=== PATIENT | male | born 1965 | race African-American/Black ===

== ENCOUNTER 2019-06-23 13:27 | Inpatient (IN) | payer OTHER ==
[2019-06-23 14:19] VITALS: BMI 20.6
--- NOTE | 2019-06-23 17:04 | HP ---
CIWA Score Nausea/Vomitin Muscle Tremors: 3 Anxiety: 2 Agitation: 3 Paroxysmal Sweats: 2 Orientation: 0-Oriented Tacttile Disturbances: 0-None Auditory Disturbances: 0-None Visual Disturbances: 0-None Headache: 0-None Present CIWA-Ar Total Score: 12 - Admission Criteria OASAS Guidelines: Admission for Medically Managed Detox: Requires at least one of the followin. CIWA greater than 12 2. Seizures within the past 24 hours 3. Delirium tremens within the past 24 hours 4. Hallucinations within the past 24 hours 5. Acute intervention needed for co occurring medical disorder 6. Acute intervention needed for co occurring psychiatric disorder 7. Severe withdrawal that cannot be handled at a lower level of care (continued vomiting, continued diarrhea, abnormal vital signs) requiring intravenous medication and/or fluids 8. Admission ROS [facility] Chief Complaint: Detox Alcohol and Heroin Allergies/Adverse Reactions: Allergies Allergy/AdvReac Type Severity Reaction Status Date / Time No Known Allergies Allergy Verified 06/23/19 14:00 History of Present Illness: 53 year old male with hypertension, alcohol and heroin dependence here for detox. Never been here before but was in detox 2x before, last time 1 year ago elsewhere. Reports not taking meds for 2 weeks. Reports dysfunctional family which is why he drinks. Alcohol: a fifth of vodka every day, last drink before he got here, started at age 5; Never had a seizure, withdrawals include tremors Heroin: 2-3 bags per week, sniffs it, last used last week; never injected, started in high school Cocaine: denies use Marijuana: couple sacks per day Cigarettes: 1.5 packs per day since age [age] Surgeries: never Work: Former demolition work Living Situation: lives in [place], stays with family Social: 2 girls, healthy - Ebola screening Have you traveled outside of the country in the last 21 days: No Have you had contact with anyone from an Ebola affected area: No Do you have a fever: No - Review of Systems Constitutional: Chills, Diaphoresis, Fever EENT: reports: Blurred Vision, Nose Congestion Respiratory: reports: Cough, Shortness of Breath Cardiac: reports: No Symptoms Reported GI: reports: Nausea : reports: No Symptoms Reported Musculoskeletal: reports: No Symptoms Reported Integumentary: reports: No Symptoms Reported Neuro: reports: No Symptoms reported Endocrine: reports: No Symptoms Reported Hematology: reports: No Symptoms Reported Psychiatric: reports: Judgement Intact, Mood/Affect Appropiate, Orientated x3 Patient History - Smoking Cessation Smoking history: Current every day smoker Have you smoked in the past 12 months: Yes Hx Chewing Tobacco Use: No Initiated information on smoking cessation: No 'Breaking Loose' booklet given: 06/23/19 - Substances abused Heroin Substance route: Inhalation Frequency: 1-2 times per week Amount used: 2- 3 bags Age of first use: 13 Date of last use: 06/16/19 Alcohol Substance route: Oral Frequency: Daily Amount used: 24 bottles of nips vodka Age of first use: 5 Date of last use: 06/23/19 Admission Physical Exam [facility] - Vital Signs Vital Signs: Vital Signs - 24 hr 06/23/19 06/23/19 14:00 16:47 Temperature 97.2 F L 97.2 F L Pulse Rate 71 71 Respiratory 18 18 Rate Blood Pressure 130/72 130/72 - Physical General Appearance: Yes: No Apparent Distress, Nourished, Disheveled HEENTM: Yes: EOMI, Hearing grossly Normal Respiratory: Yes: Chest Non-Tender, Lungs Clear, Normal Breath Sounds, No Respiratory Distress Breast: Yes: Within Normal Limits, Axillae without masses Cardiology: Yes: Regular Rhythm, Regular Rate Abdominal: Yes: Non Tender, Flat, Soft Musculoskeletal: Yes: Gait Steady Extremities: Yes: Normal Capillary Refill Neurological: Yes: account underwriter II-XII NML intact, Fully Oriented, Alert, Motor Strength 5/5 - Diagnostic (1) Alcohol dependence Current Visit: Yes Status: Acute Cleared for Admission [facility] - Detox or Rehab [facility] Level of Care: Medically Managed Breathalyzer - Breathalyzer Breathalyzer: 0.078 Urine Drug Screen - Test Device Lot number: [id number] Expiration date: 02/20/21 - Control Is test valid?: Yes - Results Drug screen NEGATIVE: No Urine drug screen results: THC-Marijuana, ROMERO-Cocaine Inpatient Rehab Admission - Rehab Decision to Admit Inpatient rehab admission?: No
--- NOTE | 2019-06-23 17:15 | PN ---
"Teaching Attending Note Name of Resident: Srinivas Alejo ATTENDING PHYSICIAN STATEMENT I saw and evaluated the patient. I reviewed the resident's note and discussed the case with the resident. I agree with the resident's findings and plan as documented. SUBJECTIVE: 53 year old male HERE FOR alcohol and heroin detox . etoh : 1/5 /day , first age of use 5, latest use today , denies seizures , + tremors . heroin : 2-3 bags heroin / week via inhalation, denies IV , latest use 1 week ago Marijuana: 2 /DAY Cigarettes: 1.5 packs per day since age [age] pmhx : hypertension, non- cmpliant w/ meds x 2 weeks. OBJECTIVE: [facility]NWD Search Terms: ruthy borges, 1965 Search Date: 06/23/2019 05:14:33 PM This report was requested by: Blanca Cazares | Reference #: [id number] There are no results for the search terms that you entered. Vital Signs - 24 hr 06/23/19 06/23/19 14:00 16:47 Temperature 97.2 F L 97.2 F L Pulse Rate 71 71 Respiratory 18 18 Rate Blood Pressure 130/72 130/72 ASSESSMENT AND PLAN: Alcohol use disorder- Librium detox. Opioid use , episodic Cannabis use disorder Nicotine dependence - smoking cessation counseling,"
[2019-06-23] MEDS ORDERED: ACETAMINOPHEN 325 MG TABLET (FP) PO PRN ×2 (17:17)
[2019-06-23] MEDS ORDERED: hydrOXYzine PAMOATE 25 MG CAPSULE (FP) PO PRN (17:17)
[2019-06-23] MEDS ORDERED: MAGNESIUM CITRATE 300 ML BOTTLE PO PRN (17:17)
[2019-06-23] MEDS ORDERED: IBUPROFEN 400 MG TABLET (FP) PO PRN (17:17)
[2019-06-23] MEDS ORDERED: MAGNESIUM HYDROX 2400MG/30ML ORAL SUSPENSION 30 ML CUP PO PRN (17:17)
[2019-06-23] MEDS ORDERED: chlordiazePOXIDE HCL 10 MG CAPSULE PO PRN (17:17)
[2019-06-23] MEDS ORDERED: MAG HYDROX/AL HYDROX/SIMETH 30 ML UNIT-DOSE CUP PO PRN (17:17)
[2019-06-23] MEDS ORDERED: MENTHOL/PHENOL 1 EACH UD MM PRN (17:17)
[2019-06-23] MEDS ORDERED: BISMUTH SUBSALICYLATE 524 MG/30 ML UD PO PRN (17:17)
[2019-06-23] MEDS ORDERED: METHOCARBAMOL 500 MG TABLET PO PRN (17:17)
[2019-06-23] MEDS: MELATONIN 5 MG TABLETS PO PRN (21:31)
[2019-06-23] MEDS: chlordiazePOXIDE HCL 25 MG CAPSULE PO SCH (21:31)
[2019-06-23] MEDS: THIAMINE HCL 100 MG TABLET (FP) PO SCH (21:31)
[2019-06-24] MEDS: chlordiazePOXIDE HCL 25 MG CAPSULE PO SCH ×3 (05:39→22:15)
[2019-06-24 09:47] LABS: HEMATOCRIT 35.3 % (35.4-49); HEMOGLOBIN 12.2 GM/dL (11.7-16.9); MCH 30.4 pg (25.7-33.7); MCHC 34.5 g/dl (32.0-35.9); MEAN CELL VOLUME 88.1 fl (80-96); MEAN PLT VOLUME 8.4 fl (7.5-11.1); PLATELET COUNT 209 K/MM3 (134-434); RDW 15.1 % (11.9-15.9); WHITE BLOOD COUNT 3.1 K/mm3 (4.0-10.0)
[2019-06-24] MEDS: PRENATAL VITAMINS W/ FOLIC ACID TABLET (FP) PO SCH (10:05)
[2019-06-24] MEDS: NICOTINE 21 MG/24 HOURS TOPICAL PATCH TD SCH (10:06)
[2019-06-24 10:29] LABS: ALBUMIN 3.4 g/dl (3.4-5.0); BILIRUBIN,TOTAL 1.4 mg/dL (0.2-1); BLOOD UREA NITROGEN 10.5 mg/dL (7-18); CREATININE 0.8 mg/dL (0.55-1.3); POTASSIUM 3.8 mmol/L (3.5-5.1); TOT PROT 6.3 g/dl (6.4-8.2)
--- NOTE | 2019-06-24 10:51 | PN ---
[facility] CIWA - CIWA Score Nausea/Vomitin-No Nausea/No Vomiting Muscle Tremors: 2 Anxiety: 2 Agitation: 3 Paroxysmal Sweats: 2 Orientation: 0-Oriented Tacttile Disturbances: 1-Very Mild Itch/Numbness Auditory Disturbances: 0-None Visual Disturbances: 1-Very Mild Sensitivity Headache: 1-Very Mild CIWA-Ar Total Score: 12 S Progress Note (SOAP) Subjective: c/o interrupted sleep, chills, sweats, body aches Objective: 06/24/19 10:50 Vital Signs Temperature 98.5 F 06/24/19 09:05 Pulse Rate 59 L 06/24/19 09:05 Respiratory Rate 18 06/24/19 09:05 Blood Pressure 147/94 06/24/19 09:05 O2 Sat by Pulse Oximetry (%) Laboratory Last Values WBC 3.1 K/mm3 (4.0-10.0) L 06/24/19 07:40 RBC 4.00 M/mm3 (4.00-5.60) 06/24/19 07:40 Hgb 12.2 GM/dL (11.7-16.9) 06/24/19 07:40 Hct 35.3 % (35.4-49) L 06/24/19 07:40 MCV 88.1 fl (80-96) 06/24/19 07:40 MCH 30.4 pg (25.7-33.7) 06/24/19 07:40 MCHC 34.5 g/dl (32.0-35.9) 06/24/19 07:40 RDW 15.1 % (11.9-15.9) 06/24/19 07:40 Plt Count 209 K/MM3 (134-434) 06/24/19 07:40 MPV 8.4 fl (7.5-11.1) 06/24/19 07:40 Sodium 141 mmol/L (136-145) 06/24/19 07:40 Potassium 3.8 mmol/L (3.5-5.1) 06/24/19 07:40 Chloride 107 mmol/L (98-107) 06/24/19 07:40 Carbon Dioxide 27 mmol/L (21-32) 06/24/19 07:40 Anion Gap 7 MMOL/L (8-16) L 06/24/19 07:40 BUN 10.5 mg/dL (7-18) 06/24/19 07:40 Creatinine 0.8 mg/dL (0.55-1.3) 06/24/19 07:40 Est GFR (CKD-EPI)AfAm 116.56 06/24/19 07:40 Est GFR (CKD-EPI)NonAf 100.57 06/24/19 07:40 Random Glucose 79 mg/dL (74-106) 06/24/19 07:40 Calcium 9.0 mg/dL (8.5-10.1) 06/24/19 07:40 Total Bilirubin 1.4 mg/dL (0.2-1) H 06/24/19 07:40 AST 24 U/L (15-37) 06/24/19 07:40 ALT 20 U/L (13-61) 06/24/19 07:40 Alkaline Phosphatase 121 U/L (45-117) H 06/24/19 07:40 Total Protein 6.3 g/dl (6.4-8.2) L 06/24/19 07:40 Albumin 3.4 g/dl (3.4-5.0) 06/24/19 07:40 Assessment: 06/24/19 10:50 Aox3 irritable No adventitious breath sounds full ROM no gait disturbance withdrawal sx Plan: increase PO fluids continue detox Continue to monitor
--- NOTE | 2019-06-24 14:06 | CONSULT ---
[facility] Psychiatric Consult - Data Date of interview: 06/24/19 Admission source: [facility] Identifying data: THREE visits at bedside made by this sba underwriter to engage with the patient for a psychiatric interview. Mr Pacheco is found lying in bed, awake and resting comfortably. " I don't have to talk to psychiatrists." Patient dismisses clinical sales consultant. Declines evaluation. Nursing staff is made aware.
[2019-06-24] MEDS: MELATONIN 5 MG TABLETS PO PRN (22:15)
[2019-06-24] MEDS: THIAMINE HCL 100 MG TABLET (FP) PO SCH (22:15)
[2019-06-25] MEDS: chlordiazePOXIDE 5 MG CAPSULE PO SCH ×3 (06:01→22:32)
--- NOTE | 2019-06-25 10:22 | PN ---
S CIWA - CIWA Score Nausea/Vomitin-No Nausea/No Vomiting Muscle Tremors: None Anxiety: 3 Agitation: 0-Normal Activity Paroxysmal Sweats: 3 Orientation: 0-Oriented Tacttile Disturbances: 0-None Auditory Disturbances: 0-None Visual Disturbances: 0-None Headache: 2-Mild CIWA-Ar Total Score: 8 [facility] Progress Note (SOAP) Subjective: c/o sweats, anxiety, and headache. Objective: 06/25/19 10:20 Vital Signs 06/25/19 06/25/19 06/25/19 03:30 06:04 09:07 Temperature 97.9 F 97.8 F Pulse Rate 53 L 61 Respiratory 18 18 18 Rate Blood Pressure 152/84 147/91 Lab Results WBC 3.1 K/mm3 (4.0-10.0) L 06/24/19 07:40 RBC 4.00 M/mm3 (4.00-5.60) 06/24/19 07:40 Hgb 12.2 GM/dL (11.7-16.9) 06/24/19 07:40 Hct 35.3 % (35.4-49) L 06/24/19 07:40 MCV 88.1 fl (80-96) 06/24/19 07:40 MCHC 34.5 g/dl (32.0-35.9) 06/24/19 07:40 RDW 15.1 % (11.9-15.9) 06/24/19 07:40 Plt Count 209 K/MM3 (134-434) 06/24/19 07:40 Sodium 141 mmol/L (136-145) 06/24/19 07:40 Potassium 3.8 mmol/L (3.5-5.1) 06/24/19 07:40 Chloride 107 mmol/L (98-107) 06/24/19 07:40 Carbon Dioxide 27 mmol/L (21-32) 06/24/19 07:40 Anion Gap 7 MMOL/L (8-16) L 06/24/19 07:40 BUN 10.5 mg/dL (7-18) 06/24/19 07:40 Creatinine 0.8 mg/dL (0.55-1.3) 06/24/19 07:40 Random Glucose 79 mg/dL (74-106) 06/24/19 07:40 Calcium 9.0 mg/dL (8.5-10.1) 06/24/19 07:40 Labs noted. Assessment: 06/25/19 10:21 AOX3, in no acute respiratory distress. Full ROM, ambulating in the unit. Withdrawal symptoms. Plan: continue detox.
[2019-06-25] MEDS: PRENATAL VITAMINS W/ FOLIC ACID TABLET (FP) PO SCH (11:00)
[2019-06-25] MEDS: NICOTINE 21 MG/24 HOURS TOPICAL PATCH TD SCH (11:00)
[2019-06-25] MEDS: MELATONIN 5 MG TABLETS PO PRN (22:32)
[2019-06-25] MEDS: THIAMINE HCL 100 MG TABLET (FP) PO SCH (22:32)
[2019-06-26] MEDS ORDERED: chlordiazePOXIDE HCL 10 MG CAPSULE PO PRN
[2019-06-26] MEDS: chlordiazePOXIDE HCL 10 MG CAPSULE PO SCH ×3 (06:20→22:17)
[2019-06-26] MEDS: PRENATAL VITAMINS W/ FOLIC ACID TABLET (FP) PO SCH (10:51)
[2019-06-26] MEDS: NICOTINE 21 MG/24 HOURS TOPICAL PATCH TD SCH (10:51)
--- NOTE | 2019-06-26 13:47 | PN ---
S CIWA - CIWA Score Nausea/Vomitin-No Nausea/No Vomiting Muscle Tremors: 2 Anxiety: 1-Mildly Anxious Agitation: 1-Slight > Activity Paroxysmal Sweats: No Perspiration Orientation: 0-Oriented Tacttile Disturbances: 0-None Auditory Disturbances: 0-None Visual Disturbances: 0-None Headache: 0-None Present CIWA-Ar Total Score: 4 BHS Progress Note (SOAP) Subjective: 53 years old male admitted on 06/23/19 for alcohol withdrawal sx management treated with librium detox regimen sitting on the edge of the bed eating breakfast discuss aftercare with staff Objective: 06/26/19 13:47 Vital Signs Temperature 98.7 F 06/26/19 09:22 Pulse Rate 59 L 06/26/19 09:22 Respiratory Rate 18 06/26/19 09:22 Blood Pressure 117/69 06/26/19 09:22 O2 Sat by Pulse Oximetry (%) Laboratory Last Values WBC 3.1 K/mm3 (4.0-10.0) L 06/24/19 07:40 RBC 4.00 M/mm3 (4.00-5.60) 06/24/19 07:40 Hgb 12.2 GM/dL (11.7-16.9) 06/24/19 07:40 Hct 35.3 % (35.4-49) L 06/24/19 07:40 MCV 88.1 fl (80-96) 06/24/19 07:40 MCH 30.4 pg (25.7-33.7) 06/24/19 07:40 MCHC 34.5 g/dl (32.0-35.9) 06/24/19 07:40 RDW 15.1 % (11.9-15.9) 06/24/19 07:40 Plt Count 209 K/MM3 (134-434) 06/24/19 07:40 MPV 8.4 fl (7.5-11.1) 06/24/19 07:40 Sodium 141 mmol/L (136-145) 06/24/19 07:40 Potassium 3.8 mmol/L (3.5-5.1) 06/24/19 07:40 Chloride 107 mmol/L (98-107) 06/24/19 07:40 Carbon Dioxide 27 mmol/L (21-32) 06/24/19 07:40 Anion Gap 7 MMOL/L (8-16) L 06/24/19 07:40 BUN 10.5 mg/dL (7-18) 06/24/19 07:40 Creatinine 0.8 mg/dL (0.55-1.3) 06/24/19 07:40 Est GFR (CKD-EPI)AfAm 116.56 06/24/19 07:40 Est GFR (CKD-EPI)NonAf 100.57 06/24/19 07:40 Random Glucose 79 mg/dL (74-106) 06/24/19 07:40 Calcium 9.0 mg/dL (8.5-10.1) 06/24/19 07:40 Total Bilirubin 1.4 mg/dL (0.2-1) H 06/24/19 07:40 AST 24 U/L (15-37) 06/24/19 07:40 ALT 20 U/L (13-61) 06/24/19 07:40 Alkaline Phosphatase 121 U/L (45-117) H 06/24/19 07:40 Total Protein 6.3 g/dl (6.4-8.2) L 06/24/19 07:40 Albumin 3.4 g/dl (3.4-5.0) 06/24/19 07:40 RPR Titer Nonreactive (NONREACTIVE) 06/24/19 07:40 HIV 1&2 Ag/Ab, 4th Gen Non reactive (Non Reactive) 06/24/19 07:40 lab noted Assessment: 06/26/19 13:47 alcohol withdrawal sx Plan: continue librium detox regimen
[2019-06-26] MEDS: THIAMINE HCL 100 MG TABLET (FP) PO SCH (22:17)
[2019-06-26] MEDS: MELATONIN 5 MG TABLETS PO PRN (22:17)
[2019-06-27] MEDS ORDERED: chlordiazePOXIDE HCL 10 MG CAPSULE PO ONE (05:00)
[2019-06-27 09:22] VITALS: BP 107/68; PULSE 64; TEMP 97.7
--- NOTE | 2019-06-27 10:28 | DS ---
[facility] Detox Discharge Summary Admission Date: 06/23/19 Discharge Date: 06/27/19 - History Present History: Alcohol Dependence Additional Comments: 53 years old male admitted on 06/23/19 for alcohol withdrawal sx management treated with librium detox regimen patient tolerated well patient is alert oriented x 3 respiratory clear lung bilaterally on auscultation abdomen soft no rebound tenderness skin warm and dry - Physical Exam Results Vital Signs: Vital Signs Temperature 97.7 F 06/27/19 09:21 Pulse Rate 64 06/27/19 09:21 Respiratory Rate 18 06/27/19 09:21 Blood Pressure 107/68 06/27/19 09:21 O2 Sat by Pulse Oximetry (%) Pertinent Admission Physical Exam Findings: alcohol withdrawal sx Laboratory Last Values WBC 3.1 K/mm3 (4.0-10.0) L 06/24/19 07:40 RBC 4.00 M/mm3 (4.00-5.60) 06/24/19 07:40 Hgb 12.2 GM/dL (11.7-16.9) 06/24/19 07:40 Hct 35.3 % (35.4-49) L 06/24/19 07:40 MCV 88.1 fl (80-96) 06/24/19 07:40 MCH 30.4 pg (25.7-33.7) 06/24/19 07:40 MCHC 34.5 g/dl (32.0-35.9) 06/24/19 07:40 RDW 15.1 % (11.9-15.9) 06/24/19 07:40 Plt Count 209 K/MM3 (134-434) 06/24/19 07:40 MPV 8.4 fl (7.5-11.1) 06/24/19 07:40 Sodium 141 mmol/L (136-145) 06/24/19 07:40 Potassium 3.8 mmol/L (3.5-5.1) 06/24/19 07:40 Chloride 107 mmol/L (98-107) 06/24/19 07:40 Carbon Dioxide 27 mmol/L (21-32) 06/24/19 07:40 Anion Gap 7 MMOL/L (8-16) L 06/24/19 07:40 BUN 10.5 mg/dL (7-18) 06/24/19 07:40 Creatinine 0.8 mg/dL (0.55-1.3) 06/24/19 07:40 Est GFR (CKD-EPI)AfAm 116.56 06/24/19 07:40 Est GFR (CKD-EPI)NonAf 100.57 06/24/19 07:40 Random Glucose 79 mg/dL (74-106) 06/24/19 07:40 Calcium 9.0 mg/dL (8.5-10.1) 06/24/19 07:40 Total Bilirubin 1.4 mg/dL (0.2-1) H 06/24/19 07:40 AST 24 U/L (15-37) 06/24/19 07:40 ALT 20 U/L (13-61) 06/24/19 07:40 Alkaline Phosphatase 121 U/L (45-117) H 06/24/19 07:40 Total Protein 6.3 g/dl (6.4-8.2) L 06/24/19 07:40 Albumin 3.4 g/dl (3.4-5.0) 06/24/19 07:40 RPR Titer Nonreactive (NONREACTIVE) 06/24/19 07:40 HIV 1&2 Ag/Ab, 4th Gen Non reactive (Non Reactive) 06/24/19 07:40 lab noted - Treatment Hospital Course: Detox Protocol Followed, Detoxed Safely, Responded well, Discharged Condition Good, Rehab Referral Accepted Patient has Accepted [facility] Referral [facility] - Medication Discharge Medications: Ambulatory Orders Clonidine HCl [Clonidine HCl ER] 0.1 mg PO TID 06/23/19 Docusate Sodium [Colace -] 100 mg PO BID 06/23/19 Famotidine [Pepcid] 20 mg PO DAILY 06/23/19 Ferrous Sulfate [Feosol] 325 mg PO DAILY 06/23/19 Gabapentin [Neurontin -] 300 mg PO Q8H 06/23/19 Ibuprofen 800 mg PO PRN PRN 06/23/19 Mirtazapine [Remeron -] 15 mg PO HS 06/23/19 Naltrexone HCl 25 mg PO DAILY 06/23/19 Quetiapine Fumarate [Seroquel -] 50 mg PO HS 06/23/19 - Diagnosis (1) Nicotine dependence Current Visit: Yes Status: Acute Qualifiers: Nicotine product type: cigarettes Substance use status: in withdrawal Qualified Code(s): F17.213 - Nicotine dependence, cigarettes, with withdrawal (2) Substance induced mood disorder Current Visit: Yes Status: Suspected (3) Alcohol dependence Current Visit: Yes Status: Acute Qualifiers: Substance use status: uncomplicated Qualified Code(s): F10.20 - Alcohol dependence, uncomplicated - AMA Did Patient Leave Against Medical Advice: No CIWA Score - CIWA Score Nausea/Vomitin-No Nausea/No Vomiting Muscle Tremors: 1-None Visible, but [place] Anxiety: 0-No Anxiety, at Ease Agitation: 0-Normal Activity Paroxysmal Sweats: No Perspiration Orientation: 0-Oriented Tacttile Disturbances: 0-None Auditory Disturbances: 0-None Visual Disturbances: 0-None Headache: 0-None Present CIWA-Ar Total Score: 1
[2019-06-27] MEDS: PRENATAL VITAMINS W/ FOLIC ACID TABLET (FP) PO SCH (10:32)
[2019-06-27] MEDS: NICOTINE 21 MG/24 HOURS TOPICAL PATCH TD SCH (10:32)
== END 2019-06-27 12:20 | disposition other institution (70) | DRG 775 ==
LOC: YASAS 13:27 → Y3N 18:04
PROVIDERS: ADMIT Allergy & Immunology; ATTEND Allergy & Immunology
PROC: HZ2ZZZZ Detoxification Services for Substance Abuse Treatment (ICD-10-PCS; principal; 2019-06-23)
DX: F10.230 Alcohol dependence with withdrawal, uncomplicated (principal); F17.213 Nicotine dependence, cigarettes, with withdrawal; F19.24 Other psychoactive substance dependence with psychoactive substance-induced mood disorder
CPT/HCPCS: 36415; 80053; 85027; 86593; 87389

== ENCOUNTER 2019-06-27 12:20 | Inpatient (IN) | payer OTHER ==
[2019-06-27] MEDS ORDERED: MAG HYDROX/AL HYDROX/SIMETH 30 ML UNIT-DOSE CUP PO PRN (14:49)
[2019-06-27] MEDS ORDERED: MAGNESIUM HYDROX 2400MG/30ML ORAL SUSPENSION 30 ML CUP PO PRN (14:49)
[2019-06-27] MEDS ORDERED: LOPERAMIDE HCL 2 MG CAPSULE PO PRN (14:49)
[2019-06-27] MEDS ORDERED: MENTHOL/PHENOL 1 EACH UD MM PRN (14:49)
[2019-06-27] MEDS ORDERED: P-EPHED 60MG/TRIPROLIDI 2.5MG TABLET PO PRN (14:49)
[2019-06-27] MEDS ORDERED: IBUPROFEN 400 MG TABLET (FP) PO PRN (14:49)
[2019-06-27] MEDS ORDERED: ACETAMINOPHEN 325 MG TABLET (FP) PO PRN (14:49)
[2019-06-27] MEDS ORDERED: MAGNESIUM CITRATE 300 ML BOTTLE PO PRN (14:49)
[2019-06-27] MEDS ORDERED: NICOTINE POLACRILEX 4 MG GUM BUC PRN (14:49)
[2019-06-27] MEDS ORDERED: guaiFENesin 200 MG/10 ML 10 ML UNIT-DOSE CUPS PO PRN (14:49)
--- NOTE | 2019-06-27 14:49 | HP ---
[facility] Rehab Assess/Revision - Admission History Admitted to Rehab from: [facility] Date of Admission to Rehab: 06/27/19 - Vital signs Vital Signs: Vital Signs Period Temp Pulse Resp BP Sys/Harry Pulse Ox Last 24 Hr 98.1 F 70 18 123/81 - Findings Detox History & Physical reviewed: Yes Concur with findings: Yes Comments/Additional Findings: transferred from detox to rehab admission as per protocol Inpatient Rehab Admission - Rehab Decision to Admit Inpatient rehab admission?: Yes - Initial Determination Are CD services needed?: Yes Free of communicable disease: Yes Not in need of hospitalization: Yes - Rehab Admission Criteria Previous failed treatment: Yes Poor recovery environment: Yes Comorbidities: Yes Lacks judgement: Yes Patient is meeting Inpatient Rehab admission criteria:: Yes
[2019-06-27] MEDS: MELATONIN 5 MG TABLETS PO PRN (21:58)
[2019-06-27] MEDS: THIAMINE HCL 100 MG TABLET (FP) PO SCH (21:58)
[2019-06-28] MEDS: NICOTINE 21 MG/24 HOURS TOPICAL PATCH TD SCH (11:47)
[2019-06-28] MEDS: PRENATAL VITAMINS W/ FOLIC ACID TABLET (FP) PO SCH (11:47)
[2019-06-28] MEDS: MELATONIN 5 MG TABLETS PO PRN (21:16)
[2019-06-28] MEDS: THIAMINE HCL 100 MG TABLET (FP) PO SCH (21:16)
[2019-06-29] MEDS: PRENATAL VITAMINS W/ FOLIC ACID TABLET (FP) PO SCH (10:22)
[2019-06-29] MEDS: NICOTINE 21 MG/24 HOURS TOPICAL PATCH TD SCH (10:22)
--- NOTE | 2019-06-29 17:38 | CONSULT ---
[facility] Psychiatric Consult - Data Date of interview: 06/29/19 Admission source: Transfer from [address] [place] [address]. Identifying data: First admission to [address] for this 53 y/o AA male who sought rehabilitative care after completion of detoxification at [address] [place] [address]. Patient is , a father of two, domiciled, unemployed and supported on welfare. Substance Abuse History: Discussed with the patient. Details in current [facility] report as follows : Smoking Cessation. Smoking history: Current every day smoker. Have you smoked in the past 12 months: Yes. Hx Chewing Tobacco Use: No. Initiated information on smoking cessation: No. 'Breaking Loose' booklet given: 06/23/19. - Substances abused. Heroin. Substance route: Inhalation. Frequency: 1-2 times per week. Amount used: 2- 3 bags. Age of first use: 13. Date of last use: 06/16/19. Alcohol. Substance route: Oral. Frequency: Daily. Amount used: 24 bottles of nips vodka. Age of first use: 5. Date of last use: 06/23/19 Medical History: Medical profile is remarkable for chronic lumbar pain and hypertension. Psychiatric History: Patient admits to a history of two psychiatric hospitalizations at [facility]. He endorses multiple diagnoses : MDD, schizophrenia, anxiety disorder. Mr Pacheco states that he has been prescribed various medications over the years (names not recalled) and he admits to chronic non-adherence to medications + OPD care. Patient denies history of suicide attempts. Physical/Sexual Abuse/Trauma History: Patient denies history of abuse. Additional Comment: Urine drug screen results: THC-Marijuana, ROMERO-Cocaine. Noted. Mental Status Exam - Mental Status Exam Alert and Oriented to: Time, Place, Person Cognitive Function: Good Patient Appearance: Disheveled Mood: Nervous, Withdrawn Affect: Mood Congruent, Constricted Patient Behavior: Appropriate, Cooperative Speech Pattern: Clear, Appropriate Voice Loudness: Normal Thought Process: Intact, Goal Oriented Thought Disorder: Not Present Hallucinations: Denies Suicidal Ideation: Denies Homicidal Ideation: Denies Insight/Judgement: Fair Sleep: Poorly, Difficulty falling asleep Appetite: Good Muscle strength/Tone: Normal Gait/Station: Normal Psychiatric Findings - Problem List ([place] 1, 2,3) (1) Alcohol dependence Current Visit: Yes Status: Chronic Qualifiers: Substance use status: uncomplicated Qualified Code(s): F10.20 - Alcohol dependence, uncomplicated (2) Opioid use disorder Current Visit: Yes Status: Chronic (3) Cannabis use disorder, mild, abuse Current Visit: Yes Status: Chronic (4) Nicotine dependence Current Visit: Yes Status: Acute Qualifiers: Nicotine product type: cigarettes Substance use status: in withdrawal Qualified Code(s): F17.213 - Nicotine dependence, cigarettes, with withdrawal (5) Substance induced mood disorder Current Visit: Yes Status: Suspected (6) Mood disorder Current Visit: Yes Status: Chronic (7) History of schizophrenia Current Visit: Yes Status: Chronic (8) Non-compliance Current Visit: Yes Status: Chronic - Initial Treatment Plan Initial Treatment Plan: Psychoeducation. Sleep hygiene. Motivational counseling. AA/NA meetings. MAT services discussed in this session (patient still ambivalent). Will initiate treatment with seroquel 100 mg po hs. Side effects/benefits discussed with the patient. Mr Pacheco has expressed his agreement with this plan of care. Gave verbal consent to MD. Buck.
[2019-06-29] MEDS: QUEtiapine FUMARATE 100 MG TABLET (FP) PO SCH (21:28)
[2019-06-29] MEDS: MELATONIN 5 MG TABLETS PO PRN (21:28)
[2019-06-29] MEDS: THIAMINE HCL 100 MG TABLET (FP) PO SCH (21:28)
[2019-06-30] MEDS: NICOTINE 21 MG/24 HOURS TOPICAL PATCH TD SCH (11:39)
[2019-06-30] MEDS: PRENATAL VITAMINS W/ FOLIC ACID TABLET (FP) PO SCH (11:39)
--- NOTE | 2019-06-30 15:12 | PN ---
[facility] Progress Note Note: Patient evaluated for request to initiate suboxone therapy for opioid use disorder. Patient utox upon admission + for THC and ROMERO and admitted to our detox facility for alcohol Patient reports no symptoms at this time Vital Signs Temperature 97.8 F 06/30/19 07:01 Pulse Rate 66 06/30/19 07:01 Respiratory Rate 18 06/30/19 07:01 Blood Pressure 100/62 06/30/19 07:01 O2 Sat by Pulse Oximetry (%) Aox3 no acute distress no outward s/s of withdrawal note call cooperative full ROM, no gait disturbance no pedal edema or erythema Patient plans [facility] d/t current homeless status, negative utox for opioids, but hx of alcohol dependence, patient will benefit from MAT with Vivitrol. Benefits and risks reviewed. Patient reports he is not interested in Vivitrol at this time.
[2019-06-30] MEDS: MELATONIN 5 MG TABLETS PO PRN (21:15)
[2019-06-30] MEDS: THIAMINE HCL 100 MG TABLET (FP) PO SCH (21:15)
[2019-06-30] MEDS: QUEtiapine FUMARATE 100 MG TABLET (FP) PO SCH (21:15)
[2019-07-01] MEDS: PRENATAL VITAMINS W/ FOLIC ACID TABLET (FP) PO SCH (10:51)
[2019-07-01] MEDS: NICOTINE 21 MG/24 HOURS TOPICAL PATCH TD SCH (10:51)
[2019-07-01] MEDS: THIAMINE HCL 100 MG TABLET (FP) PO SCH (21:33)
[2019-07-01] MEDS: QUEtiapine FUMARATE 100 MG TABLET (FP) PO SCH (21:33)
[2019-07-01] MEDS: MELATONIN 5 MG TABLETS PO PRN (21:33)
[2019-07-02] MEDS: PRENATAL VITAMINS W/ FOLIC ACID TABLET (FP) PO SCH (11:01)
[2019-07-02] MEDS: NICOTINE 21 MG/24 HOURS TOPICAL PATCH TD SCH (11:01)
[2019-07-02] MEDS: THIAMINE HCL 100 MG TABLET (FP) PO SCH (22:35)
[2019-07-02] MEDS: QUEtiapine FUMARATE 100 MG TABLET (FP) PO SCH (22:35)
[2019-07-03] MEDS: NICOTINE 21 MG/24 HOURS TOPICAL PATCH TD SCH (09:56)
[2019-07-03] MEDS: PRENATAL VITAMINS W/ FOLIC ACID TABLET (FP) PO SCH (09:56)
[2019-07-03] MEDS: QUEtiapine FUMARATE 100 MG TABLET (FP) PO SCH (21:52)
[2019-07-03] MEDS: THIAMINE HCL 100 MG TABLET (FP) PO SCH (21:52)
[2019-07-04] MEDS: PRENATAL VITAMINS W/ FOLIC ACID TABLET (FP) PO SCH (10:34)
[2019-07-04] MEDS: NICOTINE 21 MG/24 HOURS TOPICAL PATCH TD SCH (10:34)
[2019-07-04] MEDS: QUEtiapine FUMARATE 100 MG TABLET (FP) PO SCH (21:09)
[2019-07-04] MEDS: THIAMINE HCL 100 MG TABLET (FP) PO SCH (21:09)
[2019-07-04] MEDS: MELATONIN 5 MG TABLETS PO PRN (21:09)
[2019-07-05] MEDS: PRENATAL VITAMINS W/ FOLIC ACID TABLET (FP) PO SCH (10:09)
[2019-07-05] MEDS: NICOTINE 21 MG/24 HOURS TOPICAL PATCH TD SCH (10:09)
[2019-07-05] MEDS: QUEtiapine FUMARATE 100 MG TABLET (FP) PO SCH (21:55)
[2019-07-05] MEDS: THIAMINE HCL 100 MG TABLET (FP) PO SCH (21:55)
[2019-07-05] MEDS: MELATONIN 5 MG TABLETS PO PRN (21:55)
[2019-07-06] MEDS: PRENATAL VITAMINS W/ FOLIC ACID TABLET (FP) PO SCH (10:57)
[2019-07-06] MEDS: NICOTINE 21 MG/24 HOURS TOPICAL PATCH TD SCH (10:57)
[2019-07-06] MEDS: MELATONIN 5 MG TABLETS PO PRN (21:27)
[2019-07-06] MEDS: QUEtiapine FUMARATE 100 MG TABLET (FP) PO SCH (21:27)
[2019-07-06] MEDS: THIAMINE HCL 100 MG TABLET (FP) PO SCH (21:27)
[2019-07-07] MEDS: NICOTINE 21 MG/24 HOURS TOPICAL PATCH TD SCH (10:46)
[2019-07-07] MEDS: PRENATAL VITAMINS W/ FOLIC ACID TABLET (FP) PO SCH (10:46)
[2019-07-07] MEDS: THIAMINE HCL 100 MG TABLET (FP) PO SCH (22:00)
[2019-07-07] MEDS: QUEtiapine FUMARATE 100 MG TABLET (FP) PO SCH (22:00)
[2019-07-07] MEDS: MELATONIN 5 MG TABLETS PO PRN (22:00)
[2019-07-08] MEDS: NICOTINE 21 MG/24 HOURS TOPICAL PATCH TD SCH (10:33)
[2019-07-08] MEDS: PRENATAL VITAMINS W/ FOLIC ACID TABLET (FP) PO SCH (10:33)
[2019-07-08] MEDS: QUEtiapine FUMARATE 100 MG TABLET (FP) PO SCH (21:17)
[2019-07-08] MEDS: THIAMINE HCL 100 MG TABLET (FP) PO SCH (21:17)
[2019-07-08] MEDS: MELATONIN 5 MG TABLETS PO PRN (21:17)
[2019-07-09] MEDS: PRENATAL VITAMINS W/ FOLIC ACID TABLET (FP) PO SCH (10:09)
[2019-07-09] MEDS: NICOTINE 21 MG/24 HOURS TOPICAL PATCH TD SCH (10:09)
[2019-07-09] MEDS: MELATONIN 5 MG TABLETS PO PRN (21:51)
[2019-07-09] MEDS: THIAMINE HCL 100 MG TABLET (FP) PO SCH (21:51)
[2019-07-09] MEDS: QUEtiapine FUMARATE 100 MG TABLET (FP) PO SCH (21:51)
--- NOTE | 2019-07-10 08:21 | PN ---
[facility] Progress Note Note: Patient is scheduled for discharge tomorrow. Script for 30 days supply of Seroquel 100 mg/hs will be electronically transmitted to [facility] at [address] [address]
[2019-07-10] MEDS: NICOTINE 21 MG/24 HOURS TOPICAL PATCH TD SCH (10:10)
[2019-07-10] MEDS: PRENATAL VITAMINS W/ FOLIC ACID TABLET (FP) PO SCH (10:10)
[2019-07-10] MEDS: QUEtiapine FUMARATE 100 MG TABLET (FP) PO SCH (21:37)
[2019-07-10] MEDS: THIAMINE HCL 100 MG TABLET (FP) PO SCH (21:37)
[2019-07-10] MEDS: MELATONIN 5 MG TABLETS PO PRN (21:37)
[2019-07-11 06:49] VITALS: BP 144/72; PULSE 66; TEMP 98
--- NOTE | 2019-07-11 09:08 | DS ---
[facility] Rehab Discharge Summary - [facility] Rehab Discharge Summary Admission Date: 06/27/19 Discharge Date: 07/11/19 - History Present History: Alcohol dependence - Discharge Physical Exam Vital Signs: Vital Signs Temperature 98 F 07/11/19 06:48 Pulse Rate 66 07/11/19 06:48 Respiratory Rate 18 07/11/19 06:48 Blood Pressure 144/72 07/11/19 06:48 O2 Sat by Pulse Oximetry (%) Pertinent Admission Physical Exam Findings: Patient completed rehab today for alcohol dependence. ROS: denies chest pain, sob, alcohol cravings, and dizziness. PE: alert and oriented x 3 skin warm and dry neck supple, no jvd ext full rom, no visible tremors/edema Home Medications Medication Instructions Recorded Clonidine HCl [Clonidine HCl ER] 0.1 mg PO TID 06/23/19 Docusate Sodium [Colace -] 100 mg PO BID 06/23/19 Famotidine [Pepcid] 20 mg PO DAILY 06/23/19 Ferrous Sulfate [Feosol] 325 mg PO DAILY 06/23/19 Gabapentin [Neurontin -] 300 mg PO Q8H 06/23/19 Ibuprofen 800 mg PO PRN PRN 06/23/19 Mirtazapine [Remeron -] 15 mg PO HS 06/23/19 Naltrexone HCl 25 mg PO DAILY 06/23/19 Quetiapine Fumarate [Seroquel -] 50 mg PO HS 06/23/19 Quetiapine Fumarate [Seroquel -] 100 mg PO HS #30 tablet 07/10/19 - Treatment Discharge Condition: Discharge condition good Hospital Course: Patient completed rehab today for alcohol dependence. Attended group meetings, 1 :1 sessions with counselor and Psych evaluation/treatment. Patient denies any medical complaints and SI/HI. Aftercare arranged for [facility], appt 07/12/19 10am. Home Medications Medication Instructions Recorded Clonidine HCl [Clonidine HCl ER] 0.1 mg PO TID 06/23/19 Docusate Sodium [Colace -] 100 mg PO BID 06/23/19 Famotidine [Pepcid] 20 mg PO DAILY 06/23/19 Ferrous Sulfate [Feosol] 325 mg PO DAILY 06/23/19 Gabapentin [Neurontin -] 300 mg PO Q8H 06/23/19 Ibuprofen 800 mg PO PRN PRN 06/23/19 Mirtazapine [Remeron -] 15 mg PO HS 06/23/19 Naltrexone HCl 25 mg PO DAILY 06/23/19 Quetiapine Fumarate [Seroquel -] 50 mg PO HS 06/23/19 Quetiapine Fumarate [Seroquel -] 100 mg PO HS #30 tablet 07/10/19 Patient to follow up with PCP due to medication noncompliance. - Medication Discharge Medications: Ambulatory Orders Clonidine HCl [Clonidine HCl ER] 0.1 mg PO TID 06/23/19 Docusate Sodium [Colace -] 100 mg PO BID 06/23/19 Famotidine [Pepcid] 20 mg PO DAILY 06/23/19 Ferrous Sulfate [Feosol] 325 mg PO DAILY 06/23/19 Gabapentin [Neurontin -] 300 mg PO Q8H 06/23/19 Ibuprofen 800 mg PO PRN PRN 06/23/19 Mirtazapine [Remeron -] 15 mg PO HS 06/23/19 Naltrexone HCl 25 mg PO DAILY 06/23/19 Quetiapine Fumarate [Seroquel -] 50 mg PO HS 06/23/19 Quetiapine Fumarate [Seroquel -] 100 mg PO HS #30 tablet 07/10/19 - Medication-Assisted Treatment (MAT) Medication-Assisted Treatment (MAT): No MAT Follow-up Referral: [facility] - Discharge Instructions Diet, activity, other medical instructions: Diet:reg as tolerated Activity: as tolerated Other medical instructions: follow up with pcp as recommended - Follow-up Referral Minutes to complete discharge: 30 - AMA Did Patient Leave Against Medical Advice: No
== END 2019-07-11 09:52 | disposition home or self-care (01) | DRG 772 ==
LOC: YASAS 12:20 → Y3W 12:22
PROVIDERS: ADMIT Neuromusculoskeletal Medicine & OMM; ATTEND Neuromusculoskeletal Medicine & OMM
PROC: HZ42ZZZ Group Counseling for Substance Abuse Treatment, Cognitive-Behavioral (ICD-10-PCS; principal; 2019-06-27)
DX: F10.20 Alcohol dependence, uncomplicated (principal); F11.10 Opioid abuse, uncomplicated; F14.10 Cocaine abuse, uncomplicated; F12.10 Cannabis abuse, uncomplicated; F17.213 Nicotine dependence, cigarettes, with withdrawal; F19.24 Other psychoactive substance dependence with psychoactive substance-induced mood disorder; F39 Unspecified mood [affective] disorder; F20.9 Schizophrenia, unspecified; I10 Essential (primary) hypertension; M54.5 Low back pain; G89.29 Other chronic pain; Z91.19 Patient's noncompliance with other medical treatment and regimen; Z59.0 Homelessness

== ENCOUNTER 2020-07-24 11:01 | Inpatient (IN) | payer OTHER ==
[2020-07-24 12:35] VITALS: BMI 20.5
[2020-07-24] MEDS ORDERED: MAGNESIUM HYDROX 2400MG/30ML ORAL SUSPENSION 30 ML CUP PO PRN (13:24)
[2020-07-24] MEDS ORDERED: METHOCARBAMOL 500 MG TABLET PO PRN (13:24)
[2020-07-24] MEDS ORDERED: BISMUTH SUBSALICYLATE 524 MG/30 ML UD PO PRN (13:24)
[2020-07-24] MEDS ORDERED: MENTHOL/PHENOL 1 EACH UD MM PRN (13:24)
[2020-07-24] MEDS ORDERED: ACETAMINOPHEN 325 MG TABLET (FP) PO PRN ×2 (13:24)
[2020-07-24] MEDS ORDERED: IBUPROFEN 400 MG TABLET (FP) PO PRN (13:24)
[2020-07-24] MEDS ORDERED: chlordiazePOXIDE HCL 25 MG CAPSULE PO PRN (13:24)
[2020-07-24] MEDS ORDERED: NICOTINE POLACRILEX 2 MG GUM BUC PRN (13:24)
[2020-07-24] MEDS ORDERED: ONDANSETRON *ODT* 4 MG TABLET SL PRN (13:24)
[2020-07-24] MEDS ORDERED: MAGNESIUM CITRATE 300 ML BOTTLE PO PRN (13:24)
[2020-07-24] MEDS ORDERED: MAG HYDROX/AL HYDROX/SIMETH 30 ML UNIT-DOSE CUP PO PRN (13:24)
[2020-07-24] MEDS: hydrOXYzine PAMOATE 25 MG CAPSULE (FP) PO SCH ×3 (13:54→22:14)
[2020-07-24] MEDS: NICOTINE 21 MG/24 HOURS TOPICAL PATCH TD SCH (13:54)
[2020-07-24 16:30] LABS: HEMATOCRIT 38.9 % (35.4-49); MCH 30.2 pg (25.7-33.7); MCHC 33.4 g/dl (32.0-35.9); MEAN CELL VOLUME 90.4 fl (80-96); MEAN PLT VOLUME 8.4 fl (7.5-11.1); PLATELET COUNT 240 K/MM3 (134-434); RBC 4.31 M/mm3 (4.00-5.60); RDW 15.1 % (11.9-15.9); WHITE BLOOD COUNT 3.4 K/mm3 (4.0-10.0)
[2020-07-24 16:31] LABS: CALCIUM 9.4 mg/dL (8.5-10.1)
[2020-07-24 16:32] LABS: ALBUMIN 4.4 g/dl (3.4-5.0); BLOOD UREA NITROGEN 15.2 mg/dL (7-18)
[2020-07-24 16:35] LABS: CREATININE 0.9 mg/dL (0.55-1.3)
[2020-07-24 16:37] LABS: BILIRUBIN,TOTAL 0.6 mg/dL (0.2-1); TOT PROT 7.8 g/dl (6.4-8.2)
[2020-07-24] MEDS: chlordiazePOXIDE HCL 25 MG CAPSULE PO SCH ×2 (17:27→22:14)
[2020-07-24] MEDS: THIAMINE HCL 100 MG TABLET (FP) PO SCH (22:13)
[2020-07-24] MEDS: MELATONIN 5 MG TABLETS PO SCH (22:13)
[2020-07-25] MEDS: chlordiazePOXIDE HCL 25 MG CAPSULE PO SCH ×4 (07:03→22:26)
[2020-07-25] MEDS: hydrOXYzine PAMOATE 25 MG CAPSULE (FP) PO SCH ×5 (07:03→22:26)
[2020-07-25] MEDS: PRENATAL VITAMINS W/ FOLIC ACID TABLET (FP) PO SCH (13:00)
[2020-07-25] MEDS: NICOTINE 21 MG/24 HOURS TOPICAL PATCH TD SCH (13:04)
[2020-07-25] MEDS: THIAMINE HCL 100 MG TABLET (FP) PO SCH (22:26)
[2020-07-25] MEDS: MELATONIN 5 MG TABLETS PO SCH (22:26)
[2020-07-26] MEDS: chlordiazePOXIDE HCL 25 MG CAPSULE PO SCH ×4 (06:24→22:51)
[2020-07-26] MEDS: hydrOXYzine PAMOATE 25 MG CAPSULE (FP) PO SCH ×5 (06:25→22:51)
[2020-07-26] MEDS: PRENATAL VITAMINS W/ FOLIC ACID TABLET (FP) PO SCH (10:26)
[2020-07-26] MEDS: NICOTINE 21 MG/24 HOURS TOPICAL PATCH TD SCH (10:27)
[2020-07-26] MEDS: MELATONIN 5 MG TABLETS PO SCH (22:51)
[2020-07-26] MEDS: THIAMINE HCL 100 MG TABLET (FP) PO SCH (22:51)
[2020-07-27] MEDS ORDERED: chlordiazePOXIDE HCL 10 MG CAPSULE PO PRN
[2020-07-27] MEDS: hydrOXYzine PAMOATE 25 MG CAPSULE (FP) PO SCH ×5 (06:20→22:32)
[2020-07-27] MEDS: chlordiazePOXIDE HCL 10 MG CAPSULE PO SCH ×4 (06:20→22:32)
[2020-07-27] MEDS: NICOTINE 21 MG/24 HOURS TOPICAL PATCH TD SCH (11:05)
[2020-07-27] MEDS: PRENATAL VITAMINS W/ FOLIC ACID TABLET (FP) PO SCH (11:05)
[2020-07-27] MEDS: THIAMINE HCL 100 MG TABLET (FP) PO SCH (22:32)
[2020-07-27] MEDS: MELATONIN 5 MG TABLETS PO SCH (22:32)
[2020-07-28] MEDS: chlordiazePOXIDE HCL 10 MG CAPSULE PO SCH ×2 (05:23→17:30)
[2020-07-28] MEDS: hydrOXYzine PAMOATE 25 MG CAPSULE (FP) PO SCH ×5 (05:23→22:00)
[2020-07-28] MEDS: NICOTINE 21 MG/24 HOURS TOPICAL PATCH TD SCH (10:24)
[2020-07-28] MEDS: PRENATAL VITAMINS W/ FOLIC ACID TABLET (FP) PO SCH (10:24)
[2020-07-28 17:19] VITALS: BP 90/59; PULSE 53; TEMP 98
[2020-07-28] MEDS: MELATONIN 5 MG TABLETS PO SCH (22:00)
[2020-07-28] MEDS: THIAMINE HCL 100 MG TABLET (FP) PO SCH (22:00)
[2020-07-29] MEDS ORDERED: chlordiazePOXIDE HCL 10 MG CAPSULE PO ONE (05:00)
[2020-07-29] MEDS: hydrOXYzine PAMOATE 25 MG CAPSULE (FP) PO SCH (06:58)
== END 2020-07-29 09:28 | disposition home or self-care (01) | DRG 775 ==
LOC: YASAS 11:01 → Y3N 13:24
PROVIDERS: ADMIT Allergy & Immunology; ATTEND Allergy & Immunology
PROC: HZ2ZZZZ Detoxification Services for Substance Abuse Treatment (ICD-10-PCS; principal; 2020-07-24)
DX: F10.230 Alcohol dependence with withdrawal, uncomplicated (principal); F12.10 Cannabis abuse, uncomplicated; F17.213 Nicotine dependence, cigarettes, with withdrawal; F19.24 Other psychoactive substance dependence with psychoactive substance-induced mood disorder; F41.1 Generalized anxiety disorder; R00.1 Bradycardia, unspecified; G47.00 Insomnia, unspecified; Z87.438 Personal history of other diseases of male genital organs
CPT/HCPCS: 36415; 80053; 85027; 86593; 86780; C9803; Q0162; U0003

== ENCOUNTER 2020-12-12 19:12 | Inpatient (IN) | payer OTHER ==
[2020-12-12 19:38] VITALS: BMI 20.7
[2020-12-12] MEDS ORDERED: MAGNESIUM CITRATE 300 ML BOTTLE PO PRN (20:42)
[2020-12-12] MEDS ORDERED: NICOTINE POLACRILEX 2 MG GUM BUC PRN (20:42)
[2020-12-12] MEDS ORDERED: ONDANSETRON *ODT* 4 MG TABLET SL PRN (20:42)
[2020-12-12] MEDS ORDERED: MAG HYDROX/AL HYDROX/SIMETH 30 ML UNIT-DOSE CUP PO PRN (20:42)
[2020-12-12] MEDS ORDERED: ACETAMINOPHEN 325 MG TABLET (FP) PO PRN ×2 (20:42)
[2020-12-12] MEDS ORDERED: BISMUTH SUBSALICYLATE 524 MG/30 ML UD PO PRN (20:42)
[2020-12-12] MEDS ORDERED: MAGNESIUM HYDROX 2400MG/30ML ORAL SUSPENSION 30 ML CUP PO PRN (20:42)
[2020-12-12] MEDS ORDERED: METHOCARBAMOL 500 MG TABLET PO PRN (20:42)
[2020-12-12] MEDS ORDERED: chlordiazePOXIDE HCL 25 MG CAPSULE PO PRN (20:42)
[2020-12-12] MEDS ORDERED: MENTHOL/PHENOL 1 EACH UD MM PRN (20:42)
[2020-12-12] MEDS ORDERED: IBUPROFEN 400 MG TABLET (FP) PO PRN (20:42)
[2020-12-12] MEDS ORDERED: MELATONIN 5 MG TABLETS PO SCH (22:00)
[2020-12-12] MEDS ORDERED: THIAMINE HCL 100 MG TABLET (FP) PO SCH (22:00)
[2020-12-12] MEDS: chlordiazePOXIDE HCL 25 MG CAPSULE PO SCH (22:24)
[2020-12-13] MEDS: chlordiazePOXIDE HCL 25 MG CAPSULE PO SCH ×2 (05:51→10:09)
[2020-12-13 08:48] VITALS: PULSE 68
[2020-12-13] MEDS ORDERED: PRENATAL VITAMINS W/ FOLIC ACID TABLET (FP) PO SCH (10:00)
[2020-12-13] MEDS ORDERED: NICOTINE 14 MG/24 HOURS TOPICAL PATCH TD SCH (10:00)
[2020-12-13 11:01] LABS: HEMATOCRIT 36.1 % (35.4-49); HEMOGLOBIN 12.1 GM/dL (11.7-16.9); MCH 28.6 pg (25.7-33.7); MCHC 33.5 g/dl (32.0-35.9); MEAN CELL VOLUME 85.4 fl (80-96); MEAN PLT VOLUME 7.9 fl (7.5-11.1); PLATELET COUNT 220 K/MM3 (134-434); RBC 4.23 M/mm3 (4.00-5.60); RDW 15.9 % (11.9-15.9); WHITE BLOOD COUNT 3.4 K/mm3 (4.0-10.0)
[2020-12-13 11:17] LABS: ALBUMIN 3.6 g/dl (3.4-5.0); BLOOD UREA NITROGEN 12.8 mg/dL (7-18)
[2020-12-13 11:20] LABS: CREATININE 0.8 mg/dL (0.55-1.3)
[2020-12-13 11:22] LABS: BILIRUBIN,TOTAL 1.1 mg/dL (0.2-1); TOT PROT 6.4 g/dl (6.4-8.2)
[2020-12-13 12:43] VITALS: BP 132/78; TEMP 98.2
[2020-12-14] MEDS ORDERED: chlordiazePOXIDE HCL 25 MG CAPSULE PO SCH (05:00)
[2020-12-14] MEDS ORDERED: FAMOTIDINE 20 MG TABLET PO SCH (10:00)
[2020-12-15] MEDS ORDERED: chlordiazePOXIDE HCL 10 MG CAPSULE PO PRN
[2020-12-15] MEDS ORDERED: chlordiazePOXIDE HCL 10 MG CAPSULE PO SCH (05:00)
[2020-12-16] MEDS ORDERED: chlordiazePOXIDE HCL 10 MG CAPSULE PO SCH (05:00)
[2020-12-17] MEDS ORDERED: chlordiazePOXIDE HCL 10 MG CAPSULE PO ONE (05:00)
== END 2020-12-13 15:20 | disposition left against medical advice (07) | DRG 770 ==
LOC: YASAS 19:12 → Y3N 20:59
PROVIDERS: ADMIT Allergy & Immunology; ATTEND Allergy & Immunology
PROC: HZ2ZZZZ Detoxification Services for Substance Abuse Treatment (ICD-10-PCS; principal; 2020-12-12)
DX: F10.230 Alcohol dependence with withdrawal, uncomplicated (principal); F12.20 Cannabis dependence, uncomplicated; F17.210 Nicotine dependence, cigarettes, uncomplicated; F20.9 Schizophrenia, unspecified; F41.1 Generalized anxiety disorder; F32.9 Major depressive disorder, single episode, unspecified; I10 Essential (primary) hypertension; Z86.19 Personal history of other infectious and parasitic diseases; Z56.0 Unemployment, unspecified
CPT/HCPCS: 36415; 80053; 85027; 86593; 86780; 93005; 93010; C9803; U0003; U0005

== ENCOUNTER 2021-08-18 09:41 | Inpatient (IN) | payer OTHER ==
[2021-08-18 10:18] VITALS: BMI 22.5
[2021-08-18] MEDS ORDERED: MENTHOL/PHENOL 1 EACH UD MM PRN (13:07)
[2021-08-18] MEDS ORDERED: ACETAMINOPHEN 325 MG TABLET (FP) PO PRN ×2 (13:07)
[2021-08-18] MEDS ORDERED: MAGNESIUM CITRATE 300 ML BOTTLE PO PRN (13:07)
[2021-08-18] MEDS ORDERED: chlordiazePOXIDE HCL 10 MG CAPSULE PO ONE (13:07)
[2021-08-18] MEDS ORDERED: BISMUTH SUBSALICYLATE 524 MG/30 ML PO PRN (13:07)
[2021-08-18] MEDS ORDERED: ONDANSETRON *ODT* 4 MG TABLET SL PRN (13:07)
[2021-08-18] MEDS ORDERED: hydrOXYzine PAMOATE 25 MG CAPSULE (FP) PO PRN (13:07)
[2021-08-18] MEDS ORDERED: IBUPROFEN 400 MG TABLET (FP) PO PRN (13:07)
[2021-08-18] MEDS ORDERED: chlordiazePOXIDE HCL 25 MG CAPSULE PO PRN (13:07)
[2021-08-18] MEDS ORDERED: METHOCARBAMOL 500 MG TABLET PO PRN (13:07)
[2021-08-18] MEDS ORDERED: MAGNESIUM HYDROX 2400MG/30ML ORAL SUSPENSION 30 ML CUP PO PRN (13:07)
[2021-08-18] MEDS ORDERED: MAG HYDROX/AL HYDROX/SIMETH 30 ML UNIT-DOSE CUP PO PRN (13:07)
[2021-08-18] MEDS: guaiFENesin 200 MG/10 ML 10 ML UNIT-DOSE CUPS PO SCH ×2 (19:41→23:28)
[2021-08-18] MEDS ORDERED: MELATONIN 5 MG TABLETS PO SCH (22:00)
[2021-08-18] MEDS ORDERED: MIRTAZAPINE 15 MG TABLET (FP) PO ONE (23:00)
[2021-08-18] MEDS: chlordiazePOXIDE HCL 25 MG CAPSULE PO SCH (23:27)
[2021-08-18] MEDS: THIAMINE HCL 100 MG TABLET (FP) PO SCH (23:28)
[2021-08-19] MEDS: guaiFENesin 200 MG/10 ML 10 ML UNIT-DOSE CUPS PO SCH ×3 (07:10→23:02)
[2021-08-19] MEDS: chlordiazePOXIDE HCL 25 MG CAPSULE PO SCH ×4 (07:10→23:00)
[2021-08-19 10:38] LABS: HEMATOCRIT 38.6 % (35.4-49); HEMOGLOBIN 12.6 GM/dL (11.7-16.9); MCH 28.3 pg (25.7-33.7); MCHC 32.7 g/dl (32.0-35.9); MEAN CELL VOLUME 86.7 fl (80-96); MEAN PLT VOLUME 8.2 fl (7.5-11.1); PLATELET COUNT 219 10^3/uL (134-434); RBC 4.45 M/mm3 (4.00-5.60); RDW 13.9 % (11.9-15.9)
[2021-08-19 10:47] LABS: BLOOD UREA NITROGEN 9.5 mg/dL (7-18); CALCIUM 8.8 mg/dL (8.5-10.1)
[2021-08-19 10:48] LABS: ALBUMIN 3.3 g/dl (3.4-5.0)
[2021-08-19 10:50] LABS: CREATININE 0.8 mg/dL (0.55-1.3)
[2021-08-19 10:52] LABS: BILIRUBIN,TOTAL 0.6 mg/dL (0.2-1); TOT PROT 6.6 g/dl (6.4-8.2)
[2021-08-19] MEDS: PRENATAL VITAMINS W/ FOLIC ACID TABLET (FP) PO SCH (11:40)
[2021-08-19] MEDS: QUEtiapine FUMARATE 100 MG TABLET (FP) PO SCH (23:00)
[2021-08-19] MEDS: MELATONIN 5 MG TABLETS PO PRN (23:00)
[2021-08-19] MEDS: THIAMINE HCL 100 MG TABLET (FP) PO SCH (23:00)
[2021-08-20] MEDS: chlordiazePOXIDE HCL 25 MG CAPSULE PO SCH ×4 (06:22→22:01)
[2021-08-20] MEDS: guaiFENesin 200 MG/10 ML 10 ML UNIT-DOSE CUPS PO SCH ×3 (06:22→21:44)
[2021-08-20 10:02] LABS: HEMATOCRIT 37.3 % (35.4-49); HEMOGLOBIN 12.4 GM/dL (11.7-16.9); MCH 28.5 pg (25.7-33.7); MCHC 33.1 g/dl (32.0-35.9); MEAN PLT VOLUME 8.2 fl (7.5-11.1); PLATELET COUNT 238 10^3/uL (134-434); RBC 4.34 M/mm3 (4.00-5.60); WHITE BLOOD COUNT 2.1 K/mm3 (4.0-10.0)
[2021-08-20] MEDS: PRENATAL VITAMINS W/ FOLIC ACID TABLET (FP) PO SCH (10:52)
[2021-08-20] MEDS: QUEtiapine FUMARATE 100 MG TABLET (FP) PO SCH (21:44)
[2021-08-20] MEDS: THIAMINE HCL 100 MG TABLET (FP) PO SCH (21:44)
[2021-08-21] MEDS ORDERED: chlordiazePOXIDE HCL 10 MG CAPSULE PO PRN
[2021-08-21] MEDS: guaiFENesin 200 MG/10 ML 10 ML UNIT-DOSE CUPS PO SCH (06:19)
[2021-08-21] MEDS: chlordiazePOXIDE HCL 10 MG CAPSULE PO SCH ×4 (06:19→22:50)
[2021-08-21] MEDS: PRENATAL VITAMINS W/ FOLIC ACID TABLET (FP) PO SCH (10:43)
[2021-08-21] MEDS: MELATONIN 5 MG TABLETS PO PRN (22:49)
[2021-08-21] MEDS: THIAMINE HCL 100 MG TABLET (FP) PO SCH (22:51)
[2021-08-21] MEDS: QUEtiapine FUMARATE 100 MG TABLET (FP) PO SCH (22:51)
[2021-08-22] MEDS ORDERED: chlordiazePOXIDE HCL 10 MG CAPSULE PO SCH (05:00)
[2021-08-22 09:11] VITALS: BP 94/62; PULSE 67; TEMP 98.4
[2021-08-22] MEDS: PRENATAL VITAMINS W/ FOLIC ACID TABLET (FP) PO SCH (10:07)
[2021-08-23] MEDS ORDERED: chlordiazePOXIDE HCL 10 MG CAPSULE PO ONE (05:00)
== END 2021-08-22 10:58 | disposition home or self-care (01) | DRG 775 ==
LOC: YASAS 09:41 → Y3N 13:51
PROVIDERS: ADMIT Allergy & Immunology; ATTEND Allergy & Immunology
PROC: HZ2ZZZZ Detoxification Services for Substance Abuse Treatment (ICD-10-PCS; principal; 2021-08-18)
DX: F10.230 Alcohol dependence with withdrawal, uncomplicated (principal); F12.20 Cannabis dependence, uncomplicated; F19.24 Other psychoactive substance dependence with psychoactive substance-induced mood disorder; U07.1 COVID-19; G47.00 Insomnia, unspecified; I10 Essential (primary) hypertension; M54.9 Dorsalgia, unspecified; G89.29 Other chronic pain; R05.9 Cough, unspecified; Z86.19 Personal history of other infectious and parasitic diseases; Z87.891 Personal history of nicotine dependence
CPT/HCPCS: 36415; 80053; 85027; 86593; 86780; C9803; U0003; U0005

== ENCOUNTER 2022-03-05 13:19 | Inpatient (IN) | payer OTHER ==
[2022-03-05 14:50] VITALS: BMI 21.3
[2022-03-05] MEDS ORDERED: LOPERAMIDE HCL 2 MG CAPSULE PO PRN (15:16)
[2022-03-05] MEDS ORDERED: DICYCLOMINE HCL 10 MG CAPSULE PO PRN (15:16)
[2022-03-05] MEDS ORDERED: IBUPROFEN 400 MG TABLET (FP) PO PRN (15:16)
[2022-03-05] MEDS ORDERED: BENZOCAINE/MENTHOL (CHLORASEPTIC ) LOZENGE MM PRN (15:16)
[2022-03-05] MEDS ORDERED: IBUPROFEN 600 MG TABLET (FP) PO PRN (15:16)
[2022-03-05] MEDS ORDERED: MAGNESIUM HYDROX 2400MG/30ML ORAL SUSPENSION 30 ML CUP PO PRN (15:16)
[2022-03-05] MEDS ORDERED: ONDANSETRON *ODT* 4 MG TABLET SL PRN (15:16)
[2022-03-05] MEDS ORDERED: ACETAMINOPHEN 325 MG TABLET (FP) PO PRN ×2 (15:16)
[2022-03-05] MEDS ORDERED: chlordiazePOXIDE HCL 25 MG CAPSULE PO PRN (15:16)
[2022-03-05] MEDS ORDERED: MAGNESIUM CITRATE 300 ML BOTTLE PO PRN (15:16)
[2022-03-05] MEDS ORDERED: MAG HYDROX/AL HYDROX/SIMETH 30 ML UNIT-DOSE CUP PO PRN (15:16)
[2022-03-05] MEDS ORDERED: BISMUTH SUBSALICYLATE 262 MG/15 ML BTL PO PRN (15:16)
[2022-03-05] MEDS: NICOTINE 21 MG/24 HOURS TOPICAL PATCH TD SCH (15:46)
[2022-03-05] MEDS ORDERED: chlordiazePOXIDE HCL 25 MG CAPSULE PO SCH (17:00)
[2022-03-05] MEDS: hydrOXYzine PAMOATE 25 MG CAPSULE (FP) PO SCH ×2 (18:22→22:48)
[2022-03-05] MEDS ORDERED: MELATONIN 5 MG TABLETS PO SCH (22:00)
[2022-03-05] MEDS: MELATONIN 5 MG TABLETS PO SCH (22:48)
[2022-03-05] MEDS: THIAMINE HCL 100 MG TABLET (FP) PO SCH (22:48)
[2022-03-05] MEDS: METHOCARBAMOL 500 MG TABLET PO PRN (22:48)
[2022-03-05] MEDS: chlordiazePOXIDE HCL 25 MG CAPSULE PO SCH (22:49)
[2022-03-06] MEDS: hydrOXYzine PAMOATE 25 MG CAPSULE (FP) PO SCH ×5 (05:35→23:15)
[2022-03-06] MEDS: chlordiazePOXIDE HCL 25 MG CAPSULE PO SCH ×4 (05:36→23:15)
[2022-03-06] MEDS: PRENATAL VITAMINS W/ FOLIC ACID TABLET (FP) PO SCH (10:33)
[2022-03-06] MEDS: METHOCARBAMOL 500 MG TABLET PO PRN (10:33)
[2022-03-06] MEDS: NICOTINE 21 MG/24 HOURS TOPICAL PATCH TD SCH (10:36)
[2022-03-06 11:14] LABS: HEMATOCRIT 38.1 % (35.4-49); HEMOGLOBIN 12.7 GM/dL (11.7-16.9); MCH 28.8 pg (25.7-33.7); MCHC 33.4 g/dl (32.0-35.9); MEAN CELL VOLUME 86.1 fl (80-96); PLATELET COUNT 253 10^3/uL (134-434); RBC 4.42 M/mm3 (4.00-5.60); RDW 14.8 % (11.9-15.9)
[2022-03-06 11:29] LABS: BLOOD UREA NITROGEN 11.6 mg/dL (7-18); CALCIUM 9.2 mg/dL (8.5-10.1)
[2022-03-06 11:32] LABS: CREATININE 0.9 mg/dL (0.55-1.3)
[2022-03-06 11:34] LABS: BILIRUBIN,TOTAL 0.7 mg/dL (0.2-1)
[2022-03-06] MEDS: amLODIPine BESYLATE 5 MG TABLET (FP) PO SCH (14:39)
[2022-03-06] MEDS: THIAMINE HCL 100 MG TABLET (FP) PO SCH (23:15)
[2022-03-06] MEDS: MELATONIN 5 MG TABLETS PO SCH (23:15)
[2022-03-07] MEDS: chlordiazePOXIDE HCL 25 MG CAPSULE PO SCH ×5 (05:38→22:23)
[2022-03-07] MEDS: hydrOXYzine PAMOATE 25 MG CAPSULE (FP) PO SCH ×5 (05:38→22:23)
[2022-03-07] MEDS: amLODIPine BESYLATE 5 MG TABLET (FP) PO SCH (10:34)
[2022-03-07] MEDS: PRENATAL VITAMINS W/ FOLIC ACID TABLET (FP) PO SCH (10:34)
[2022-03-07] MEDS: NICOTINE 21 MG/24 HOURS TOPICAL PATCH TD SCH (10:37)
[2022-03-07] MEDS: MELATONIN 5 MG TABLETS PO SCH (22:23)
[2022-03-07] MEDS: THIAMINE HCL 100 MG TABLET (FP) PO SCH (22:23)
[2022-03-08] MEDS ORDERED: chlordiazePOXIDE HCL 10 MG CAPSULE PO PRN
[2022-03-08] MEDS: hydrOXYzine PAMOATE 25 MG CAPSULE (FP) PO SCH ×5 (05:53→21:31)
[2022-03-08] MEDS: chlordiazePOXIDE HCL 10 MG CAPSULE PO SCH ×4 (05:54→22:25)
[2022-03-08] MEDS: PRENATAL VITAMINS W/ FOLIC ACID TABLET (FP) PO SCH (10:49)
[2022-03-08] MEDS: amLODIPine BESYLATE 5 MG TABLET (FP) PO SCH (10:49)
[2022-03-08] MEDS: NICOTINE 21 MG/24 HOURS TOPICAL PATCH TD SCH (10:49)
[2022-03-08] MEDS: MELATONIN 5 MG TABLETS PO SCH (21:31)
[2022-03-08] MEDS: THIAMINE HCL 100 MG TABLET (FP) PO SCH (21:31)
[2022-03-09] MEDS: chlordiazePOXIDE HCL 10 MG CAPSULE PO SCH ×2 (06:01→18:01)
[2022-03-09] MEDS: hydrOXYzine PAMOATE 25 MG CAPSULE (FP) PO SCH ×5 (06:01→23:55)
[2022-03-09] MEDS: NICOTINE 21 MG/24 HOURS TOPICAL PATCH TD SCH (11:11)
[2022-03-09] MEDS: PRENATAL VITAMINS W/ FOLIC ACID TABLET (FP) PO SCH (11:11)
[2022-03-09] MEDS: METHOCARBAMOL 500 MG TABLET PO PRN (11:11)
[2022-03-09] MEDS: amLODIPine BESYLATE 5 MG TABLET (FP) PO SCH (11:11)
[2022-03-09] MEDS: MELATONIN 5 MG TABLETS PO SCH (23:55)
[2022-03-09] MEDS: THIAMINE HCL 100 MG TABLET (FP) PO SCH (23:56)
[2022-03-10] MEDS ORDERED: chlordiazePOXIDE HCL 10 MG CAPSULE PO ONE (05:00)
[2022-03-10] MEDS: hydrOXYzine PAMOATE 25 MG CAPSULE (FP) PO SCH (05:36)
[2022-03-10 06:44] VITALS: BP 107/54; PULSE 55; TEMP 98.9
== END 2022-03-10 09:52 | disposition home or self-care (01) | DRG 775 ==
LOC: YASAS 13:19 → Y6N 15:16
PROVIDERS: ADMIT Allergy & Immunology; ATTEND Surgery
PROC: HZ2ZZZZ Detoxification Services for Substance Abuse Treatment (ICD-10-PCS; principal; 2022-03-05)
DX: F10.230 Alcohol dependence with withdrawal, uncomplicated (principal); F12.20 Cannabis dependence, uncomplicated; F17.210 Nicotine dependence, cigarettes, uncomplicated; F19.282 Other psychoactive substance dependence with psychoactive substance-induced sleep disorder; F19.24 Other psychoactive substance dependence with psychoactive substance-induced mood disorder; F39 Unspecified mood [affective] disorder; F41.1 Generalized anxiety disorder; F33.9 Major depressive disorder, recurrent, unspecified; I10 Essential (primary) hypertension; M54.50 Low back pain, unspecified; G89.29 Other chronic pain; R76.8 Other specified abnormal immunological findings in serum; Z86.19 Personal history of other infectious and parasitic diseases
CPT/HCPCS: 36415; 80053; 85027; 86593; 86780; C9803-CS; U0003; U0005

== ENCOUNTER 2022-08-15 11:55 | Inpatient (IN) | payer OTHER ==
[2022-08-15 13:18] VITALS: BMI 21.3
[2022-08-15] MEDS ORDERED: IBUPROFEN 400 MG TABLET (FP) PO PRN (13:52)
[2022-08-15] MEDS ORDERED: BENZOCAINE/MENTHOL (CHLORASEPTIC ) LOZENGE MM PRN (13:52)
[2022-08-15] MEDS ORDERED: BISMUTH SUBSALICYLATE 524 MG/30 ML PO PRN (13:52)
[2022-08-15] MEDS ORDERED: IBUPROFEN 600 MG TABLET (FP) PO PRN (13:52)
[2022-08-15] MEDS ORDERED: ACETAMINOPHEN 325 MG TABLET (FP) PO PRN ×2 (13:52)
[2022-08-15] MEDS ORDERED: hydrOXYzine PAMOATE 25 MG CAPSULE (FP) PO PRN (13:52)
[2022-08-15] MEDS ORDERED: ONDANSETRON *ODT* 4 MG TABLET SL PRN (13:52)
[2022-08-15] MEDS ORDERED: MAG HYDROX/AL HYDROX/SIMETH 30 ML UNIT-DOSE CUP PO PRN (13:52)
[2022-08-15] MEDS ORDERED: DICYCLOMINE HCL 10 MG CAPSULE PO PRN (13:52)
[2022-08-15] MEDS ORDERED: POLYETHYLENE GLYCOL (HEALTHYLAX) 3350 17 GM PACKET PO PRN (13:52)
[2022-08-15] MEDS ORDERED: NALOXONE HCL (KLOXXADO) 8 MG SPRAY NS PRN (13:52)
[2022-08-15] MEDS ORDERED: LOPERAMIDE HCL 2 MG CAPSULE PO PRN (13:52)
[2022-08-15] MEDS ORDERED: MAGNESIUM HYDROX 2400MG/30ML ORAL SUSPENSION 30 ML CUP PO PRN (13:52)
[2022-08-15] MEDS ORDERED: ONDANSETRON *ODT* 4 MG TABLET SL ONE (14:15)
[2022-08-15] MEDS ORDERED: ONDANSETRON *ODT* 4 MG TABLET ONE (14:23)
[2022-08-15] MEDS: METHOCARBAMOL 500 MG TABLET PO PRN (17:58)
[2022-08-15] MEDS: chlordiazePOXIDE HCL 25 MG CAPSULE PO SCH ×2 (17:58→22:36)
[2022-08-15 19:18] LABS: HEMOGLOBIN 12.6 GM/dL (11.7-16.9); MCH 28.1 pg (25.7-33.7)
[2022-08-15 19:20] LABS: HEMATOCRIT 38.8 % (35.4-49); MCHC 32.4 g/dl (32.0-35.9); MEAN CELL VOLUME 86.8 fl (80-96); MEAN PLT VOLUME 7.8 fl (7.5-11.1); PLATELET COUNT 283 10^3/uL (134-434); RBC 4.47 M/mm3 (4.00-5.60); RDW 13.5 % (11.9-15.9); WHITE BLOOD COUNT 3.8 K/mm3 (4.0-10.0)
[2022-08-15 19:25] LABS: CALCIUM 9.4 mg/dL (8.5-10.1)
[2022-08-15 19:26] LABS: ALBUMIN 4.1 g/dl (3.4-5.0); BLOOD UREA NITROGEN 17.2 mg/dL (7-18)
[2022-08-15 19:29] LABS: CREATININE 0.9 mg/dL (0.55-1.3)
[2022-08-15 19:30] LABS: BILIRUBIN,TOTAL 0.9 mg/dL (0.2-1); TOT PROT 7.1 g/dl (6.4-8.2)
[2022-08-15] MEDS: THIAMINE HCL 100 MG TABLET (FP) PO SCH (22:36)
[2022-08-15] MEDS: MELATONIN 5 MG TABLETS PO SCH (22:36)
[2022-08-16] MEDS: chlordiazePOXIDE HCL 25 MG CAPSULE PO SCH ×4 (05:30→22:49)
[2022-08-16] MEDS: PRENATAL VITAMINS W/ FOLIC ACID TABLET (FP) PO SCH (10:40)
[2022-08-16] MEDS: METHOCARBAMOL 500 MG TABLET PO PRN (22:49)
[2022-08-16] MEDS: THIAMINE HCL 100 MG TABLET (FP) PO SCH (22:49)
[2022-08-16] MEDS: MELATONIN 5 MG TABLETS PO SCH (22:49)
[2022-08-17] MEDS: chlordiazePOXIDE HCL 25 MG CAPSULE PO SCH ×4 (05:54→22:29)
[2022-08-17] MEDS: PRENATAL VITAMINS W/ FOLIC ACID TABLET (FP) PO SCH (10:23)
[2022-08-17] MEDS: MELATONIN 5 MG TABLETS PO SCH (22:29)
[2022-08-17] MEDS: THIAMINE HCL 100 MG TABLET (FP) PO SCH (22:29)
[2022-08-18] MEDS ORDERED: chlordiazePOXIDE HCL 10 MG CAPSULE PO SCH (05:00)
[2022-08-18 09:58] VITALS: BP 119/75; PULSE 61; RESP 18; TEMP 97.4
[2022-08-19] MEDS ORDERED: chlordiazePOXIDE HCL 10 MG CAPSULE PO SCH (05:00)
[2022-08-20] MEDS ORDERED: chlordiazePOXIDE HCL 10 MG CAPSULE PO ONE (05:00)
== END 2022-08-18 10:00 | disposition left against medical advice (07) | DRG 770 ==
LOC: YASAS 11:55 → Y6N 14:07
PROVIDERS: ADMIT Allergy & Immunology; ATTEND Surgery
PROC: HZ2ZZZZ Detoxification Services for Substance Abuse Treatment (ICD-10-PCS; principal; 2022-08-15)
DX: F10.230 Alcohol dependence with withdrawal, uncomplicated (principal); F12.20 Cannabis dependence, uncomplicated; F17.210 Nicotine dependence, cigarettes, uncomplicated; F20.9 Schizophrenia, unspecified; F19.24 Other psychoactive substance dependence with psychoactive substance-induced mood disorder; F41.9 Anxiety disorder, unspecified; F32.A Depression, unspecified; R79.89 Other specified abnormal findings of blood chemistry; Z86.19 Personal history of other infectious and parasitic diseases; Z86.59 Personal history of other mental and behavioral disorders
CPT/HCPCS: 36415; 80053; 82140; 85027; 86593; 86780; C9803-CS; Q0162; U0003; U0005

== ENCOUNTER 2022-11-05 13:14 | Inpatient (IN) | payer OTHER ==
[2022-11-05 14:31] VITALS: BMI 19.9
[2022-11-05] MEDS ORDERED: NICOTINE 14 MG/24 HOURS TOPICAL PATCH TD PRN (15:38)
[2022-11-05] MEDS ORDERED: NALOXONE HCL (KLOXXADO) 8 MG SPRAY NS PRN (15:38)
[2022-11-05] MEDS ORDERED: ACETAMINOPHEN 325 MG TABLET (FP) PO PRN (15:38)
[2022-11-05] MEDS ORDERED: MAG HYDROX/AL HYDROX/SIMETH 30 ML UNIT-DOSE CUP PO PRN (15:38)
[2022-11-05] MEDS ORDERED: IBUPROFEN 400 MG TABLET (FP) PO PRN (15:38)
[2022-11-05] MEDS ORDERED: BISMUTH SUBSALICYLATE 524 MG/30 ML PO PRN (15:38)
[2022-11-05] MEDS ORDERED: BENZOCAINE/MENTHOL (CHLORASEPTIC ) LOZENGE MM PRN (15:38)
[2022-11-05] MEDS ORDERED: IBUPROFEN 600 MG TABLET (FP) PO PRN (15:38)
[2022-11-05] MEDS ORDERED: NALOXONE HCL 0.4 MG/ML VIAL IM PRN (15:38)
[2022-11-05] MEDS ORDERED: ONDANSETRON *ODT* 4 MG TABLET SL PRN (15:38)
[2022-11-05] MEDS ORDERED: POLYETHYLENE GLYCOL (HEALTHYLAX) 3350 17 GM PACKET PO PRN (15:38)
[2022-11-05] MEDS ORDERED: LORazepam 1 MG TABLET PO PRN (15:38)
[2022-11-05] MEDS ORDERED: LOPERAMIDE HCL 2 MG CAPSULE PO PRN (15:38)
[2022-11-05] MEDS ORDERED: guaiFENesin 600 MG TABLET.ER (FP) PO PRN (15:38)
[2022-11-05] MEDS ORDERED: BENZONATATE 200 MG CAPSULE PO PRN (15:38)
[2022-11-05] MEDS ORDERED: NICOTINE 10 MG CARTRIDGE (INHALER) IH PRN (15:38)
[2022-11-05] MEDS ORDERED: MAGNESIUM HYDROX 2400MG/30ML ORAL SUSPENSION 30 ML CUP PO PRN (15:38)
[2022-11-05] MEDS ORDERED: DICYCLOMINE HCL 10 MG CAPSULE PO PRN (15:38)
[2022-11-05] MEDS: hydrOXYzine PAMOATE 25 MG CAPSULE (FP) PO PRN ×2 (17:37→22:37)
[2022-11-05] MEDS: PRENATAL VITAMINS W/ FOLIC ACID TABLET (FP) PO SCH (17:47)
[2022-11-05] MEDS: THIAMINE HCL 100 MG TABLET (FP) PO SCH (22:35)
[2022-11-05] MEDS: LORazepam 2 MG TABLET PO SCH (22:35)
[2022-11-05] MEDS: METHOCARBAMOL 500 MG TABLET PO PRN (22:35)
[2022-11-05] MEDS: MELATONIN 5 MG TABLETS PO SCH (22:35)
[2022-11-06] MEDS: LORazepam 2 MG TABLET PO SCH ×4 (05:33→22:53)
[2022-11-06 10:39] LABS: HEMATOCRIT 39.1 % (35.4-49); HEMOGLOBIN 12.6 GM/dL (11.7-16.9); MCH 27.5 pg (25.7-33.7); MCHC 32.2 g/dl (32.0-35.9); MEAN CELL VOLUME 85.4 fl (80-96); MEAN PLT VOLUME 7.9 fl (7.5-11.1); PLATELET COUNT 227 10^3/uL (134-434); RBC 4.58 M/mm3 (4.00-5.60); RDW 14.9 % (11.9-15.9); WHITE BLOOD COUNT 3.2 K/mm3 (4.0-10.0)
[2022-11-06 10:44] LABS: ALBUMIN 3.6 g/dl (3.4-5.0); BLOOD UREA NITROGEN 13.3 mg/dL (7-18)
[2022-11-06 10:46] LABS: CREATININE 0.7 mg/dL (0.55-1.3)
[2022-11-06 10:47] LABS: BILIRUBIN,TOTAL 0.6 mg/dL (0.2-1)
[2022-11-06 10:48] LABS: TOT PROT 6.5 g/dl (6.4-8.2)
[2022-11-06] MEDS: PRENATAL VITAMINS W/ FOLIC ACID TABLET (FP) PO SCH (10:52)
[2022-11-06] MEDS: LACTULOSE 20 GM/30 ML UDC (FOR ORAL USE ONLY) PO SCH ×3 (13:35→22:53)
[2022-11-06] MEDS: hydrOXYzine PAMOATE 25 MG CAPSULE (FP) PO PRN (17:26)
[2022-11-06] MEDS: MELATONIN 5 MG TABLETS PO SCH (22:54)
[2022-11-06] MEDS: METHOCARBAMOL 500 MG TABLET PO PRN (22:54)
[2022-11-06] MEDS: THIAMINE HCL 100 MG TABLET (FP) PO SCH (22:54)
[2022-11-07] MEDS: LORazepam 1 MG TABLET PO SCH ×4 (05:22→22:30)
[2022-11-07] MEDS: LACTULOSE 20 GM/30 ML UDC (FOR ORAL USE ONLY) PO SCH ×4 (10:37→22:30)
[2022-11-07] MEDS: PRENATAL VITAMINS W/ FOLIC ACID TABLET (FP) PO SCH (10:37)
[2022-11-07] MEDS: METHOCARBAMOL 500 MG TABLET PO PRN (10:37)
[2022-11-07] MEDS: hydrOXYzine PAMOATE 25 MG CAPSULE (FP) PO PRN (10:37)
[2022-11-07] MEDS: THIAMINE HCL 100 MG TABLET (FP) PO SCH (22:30)
[2022-11-07] MEDS: MELATONIN 5 MG TABLETS PO SCH (22:30)
[2022-11-08] MEDS ORDERED: LORazepam 0.5 MG TABLET PO PRN
[2022-11-08] MEDS: LORazepam 0.5 MG TABLET PO SCH ×3 (05:12→18:12)
[2022-11-08 05:59] VITALS: RESP 18
[2022-11-08] MEDS: METHOCARBAMOL 500 MG TABLET PO PRN (10:24)
[2022-11-08] MEDS: PRENATAL VITAMINS W/ FOLIC ACID TABLET (FP) PO SCH (10:24)
[2022-11-08] MEDS: hydrOXYzine PAMOATE 25 MG CAPSULE (FP) PO PRN (10:24)
[2022-11-08] MEDS: LACTULOSE 20 GM/30 ML UDC (FOR ORAL USE ONLY) PO SCH ×3 (10:24→18:12)
[2022-11-08 18:27] VITALS: BP 118/75; PULSE 66; TEMP 97
[2022-11-09] MEDS ORDERED: LORazepam 0.5 MG TABLET PO ONE (05:00)
== END 2022-11-08 18:52 | disposition home or self-care (01) | DRG 775 ==
LOC: YASAS 13:14 → Y6N 17:16
PROVIDERS: ADMIT Allergy & Immunology; ATTEND Surgery
PROC: HZ2ZZZZ Detoxification Services for Substance Abuse Treatment (ICD-10-PCS; principal; 2022-11-05)
DX: F10.230 Alcohol dependence with withdrawal, uncomplicated (principal); F12.20 Cannabis dependence, uncomplicated; F17.210 Nicotine dependence, cigarettes, uncomplicated; F19.282 Other psychoactive substance dependence with psychoactive substance-induced sleep disorder; F10.24 Alcohol dependence with alcohol-induced mood disorder; F20.9 Schizophrenia, unspecified; F32.A Depression, unspecified; F41.9 Anxiety disorder, unspecified; R79.89 Other specified abnormal findings of blood chemistry; R76.8 Other specified abnormal immunological findings in serum; Z86.19 Personal history of other infectious and parasitic diseases
CPT/HCPCS: 36415; 80053; 82140; 85027; 86593; 86780; 87811; C9803-CS; U0003; U0005

== ENCOUNTER 2023-01-05 10:33 | Inpatient (IN) | payer OTHER ==
[2023-01-05 11:18] VITALS: BMI 20.6
[2023-01-05] MEDS ORDERED: LOPERAMIDE HCL 2 MG CAPSULE PO PRN (11:39)
[2023-01-05] MEDS ORDERED: BISMUTH SUBSALICYLATE 262 MG/15 ML BTL PO PRN (11:39)
[2023-01-05] MEDS ORDERED: MAG HYDROX/AL HYDROX/SIMETH 30 ML UNIT-DOSE CUP PO PRN (11:39)
[2023-01-05] MEDS ORDERED: DICYCLOMINE HCL 10 MG CAPSULE PO PRN (11:39)
[2023-01-05] MEDS ORDERED: NICOTINE 10 MG CARTRIDGE (INHALER) IH PRN (11:39)
[2023-01-05] MEDS ORDERED: POLYETHYLENE GLYCOL (HEALTHYLAX) 3350 17 GM PACKET PO PRN (11:39)
[2023-01-05] MEDS ORDERED: NALOXONE HCL 0.4 MG/ML VIAL IM PRN (11:39)
[2023-01-05] MEDS ORDERED: ACETAMINOPHEN 325 MG TABLET (FP) PO PRN (11:39)
[2023-01-05] MEDS ORDERED: BENZOCAINE/MENTHOL (CHLORASEPTIC ) LOZENGE MM PRN (11:39)
[2023-01-05] MEDS ORDERED: ONDANSETRON *ODT* 4 MG TABLET SL PRN (11:39)
[2023-01-05] MEDS ORDERED: BENZONATATE 200 MG CAPSULE PO PRN (11:39)
[2023-01-05] MEDS ORDERED: guaiFENesin 600 MG TABLET.ER (FP) PO PRN (11:39)
[2023-01-05] MEDS ORDERED: IBUPROFEN 600 MG TABLET (FP) PO PRN (11:39)
[2023-01-05] MEDS ORDERED: IBUPROFEN 400 MG TABLET (FP) PO PRN (11:39)
[2023-01-05] MEDS ORDERED: hydrOXYzine PAMOATE 25 MG CAPSULE (FP) PO PRN (11:39)
[2023-01-05] MEDS ORDERED: METHOCARBAMOL 500 MG TABLET PO PRN (11:39)
[2023-01-05] MEDS ORDERED: LORazepam 1 MG TABLET PO PRN (11:39)
[2023-01-05] MEDS ORDERED: MAGNESIUM HYDROX 2400MG/30ML ORAL SUSPENSION 30 ML CUP PO PRN (11:39)
[2023-01-05] MEDS ORDERED: NALOXONE HCL (KLOXXADO) 8 MG SPRAY NS PRN (11:39)
[2023-01-05] MEDS ORDERED: LORazepam 2 MG TABLET PO ONE (12:02)
[2023-01-05] MEDS ORDERED: NICOTINE 7 MG/24 HOURS TOPICAL PATCH TD ONE (12:13)
[2023-01-05] MEDS ORDERED: PRENATAL VITAMINS W/ FOLIC ACID TABLET (FP) PO ONE (12:13)
[2023-01-05] MEDS ORDERED: LORazepam 2 MG TABLET ONE (12:13)
[2023-01-05] MEDS: NICOTINE 7 MG/24 HOURS TOPICAL PATCH TD SCH (12:15)
[2023-01-05] MEDS: PRENATAL VITAMINS W/ FOLIC ACID TABLET (FP) PO SCH (12:15)
[2023-01-05] MEDS: LACTULOSE 20 GM/30 ML UDC (FOR ORAL USE ONLY) PO SCH ×3 (14:54→22:39)
[2023-01-05 17:04] LABS: HEMATOCRIT 39.5 % (35.4-49); HEMOGLOBIN 13.1 GM/dL (11.7-16.9); MCH 27.8 pg (25.7-33.7); MCHC 33.1 g/dl (32.0-35.9); PLATELET COUNT 243 10^3/uL (134-434); RBC 4.71 M/mm3 (4.00-5.60); RDW 14.6 % (11.9-15.9); WHITE BLOOD COUNT 4.3 K/mm3 (4.0-10.0)
[2023-01-05 17:33] LABS: BLOOD UREA NITROGEN 9.7 mg/dL (7-18); CALCIUM 9.5 mg/dL (8.5-10.1)
[2023-01-05 17:34] LABS: ALBUMIN 4.2 g/dl (3.4-5.0)
[2023-01-05 17:37] LABS: BILIRUBIN,TOTAL 0.6 mg/dL (0.2-1); CREATININE 0.8 mg/dL (0.55-1.3); TOT PROT 7.5 g/dl (6.4-8.2)
[2023-01-05] MEDS: LORazepam 2 MG TABLET PO SCH ×2 (17:57→22:37)
[2023-01-05] MEDS: THIAMINE HCL 100 MG TABLET (FP) PO SCH (22:37)
[2023-01-05] MEDS: MELATONIN 5 MG TABLETS PO SCH (22:39)
[2023-01-06] MEDS: LORazepam 2 MG TABLET PO SCH ×4 (05:27→22:32)
[2023-01-06] MEDS: NICOTINE 7 MG/24 HOURS TOPICAL PATCH TD SCH (10:50)
[2023-01-06] MEDS: PRENATAL VITAMINS W/ FOLIC ACID TABLET (FP) PO SCH (10:51)
[2023-01-06] MEDS: LACTULOSE 20 GM/30 ML UDC (FOR ORAL USE ONLY) PO SCH ×4 (10:54→22:32)
[2023-01-06 21:28] VITALS: RESP 17
[2023-01-06] MEDS: THIAMINE HCL 100 MG TABLET (FP) PO SCH (22:32)
[2023-01-06] MEDS: MELATONIN 5 MG TABLETS PO SCH (22:33)
[2023-01-07] MEDS ORDERED: LORazepam 1 MG TABLET PO SCH (05:00)
[2023-01-07 06:16] VITALS: BP 112/62; PULSE 62; TEMP 96.4
[2023-01-08] MEDS ORDERED: LORazepam 0.5 MG TABLET PO PRN
[2023-01-08] MEDS ORDERED: LORazepam 0.5 MG TABLET PO SCH (05:00)
[2023-01-09] MEDS ORDERED: LORazepam 0.5 MG TABLET PO ONE (05:00)
== END 2023-01-07 09:10 | disposition left against medical advice (07) | DRG 770 ==
LOC: YASAS 10:33 → Y6N 12:30
PROVIDERS: ADMIT Allergy & Immunology; ATTEND Surgery
PROC: HZ2ZZZZ Detoxification Services for Substance Abuse Treatment (ICD-10-PCS; principal; 2023-01-05)
DX: F10.230 Alcohol dependence with withdrawal, uncomplicated (principal); F12.20 Cannabis dependence, uncomplicated; F17.210 Nicotine dependence, cigarettes, uncomplicated; F20.9 Schizophrenia, unspecified; F31.9 Bipolar disorder, unspecified; F41.1 Generalized anxiety disorder; I10 Essential (primary) hypertension; M54.50 Low back pain, unspecified; G89.29 Other chronic pain; R79.89 Other specified abnormal findings of blood chemistry; Z86.19 Personal history of other infectious and parasitic diseases
CPT/HCPCS: 36415; 80053; 82140; 85027; 86593; 86780; 87811; C9803-CS; U0003; U0005

== ENCOUNTER 2023-01-17 08:49 | Inpatient (IN) | payer OTHER ==
[2023-01-17 09:21] VITALS: BMI 20.5
[2023-01-17] MEDS ORDERED: AMMONIUM LACTATE 12% LOTION 225 GM BOTTLE TP PRN (10:09)
[2023-01-17] MEDS ORDERED: COLLOIDAL OATMEAL 1 BAR EACH TP PRN (10:09)
[2023-01-17] MEDS ORDERED: LOPERAMIDE HCL 2 MG CAPSULE PO PRN (10:09)
[2023-01-17] MEDS ORDERED: ONDANSETRON *ODT* 4 MG TABLET SL PRN (10:09)
[2023-01-17] MEDS ORDERED: BENZONATATE 200 MG CAPSULE PO PRN (10:09)
[2023-01-17] MEDS ORDERED: MAGNESIUM HYDROX 2400MG/30ML ORAL SUSPENSION 30 ML CUP PO PRN (10:09)
[2023-01-17] MEDS ORDERED: DICYCLOMINE HCL 10 MG CAPSULE PO PRN (10:09)
[2023-01-17] MEDS ORDERED: guaiFENesin 600 MG TABLET.ER (FP) PO PRN (10:09)
[2023-01-17] MEDS ORDERED: IBUPROFEN 400 MG TABLET (FP) PO PRN (10:09)
[2023-01-17] MEDS ORDERED: ACETAMINOPHEN 325 MG TABLET (FP) PO PRN (10:09)
[2023-01-17] MEDS ORDERED: MAG HYDROX/AL HYDROX/SIMETH 30 ML UNIT-DOSE CUP PO PRN (10:09)
[2023-01-17] MEDS ORDERED: chlordiazePOXIDE HCL 25 MG CAPSULE PO PRN (10:09)
[2023-01-17] MEDS ORDERED: POLYETHYLENE GLYCOL (HEALTHYLAX) 3350 17 GM PACKET PO PRN (10:09)
[2023-01-17] MEDS ORDERED: BENZOCAINE/MENTHOL (CHLORASEPTIC ) LOZENGE MM PRN (10:09)
[2023-01-17] MEDS ORDERED: BISMUTH SUBSALICYLATE 524 MG/30 ML PO PRN (10:09)
[2023-01-17] MEDS ORDERED: IBUPROFEN 600 MG TABLET (FP) PO PRN (10:09)
[2023-01-17] MEDS ORDERED: NICOTINE 10 MG CARTRIDGE (INHALER) IH PRN (10:09)
[2023-01-17] MEDS ORDERED: NALOXONE HCL 0.4 MG/ML VIAL IM PRN (10:09)
[2023-01-17] MEDS ORDERED: NALOXONE HCL (KLOXXADO) 8 MG SPRAY NS PRN (10:09)
[2023-01-17] MEDS: chlordiazePOXIDE HCL 25 MG CAPSULE PO SCH ×3 (10:59→22:31)
[2023-01-17] MEDS: NICOTINE 21 MG/24 HOURS TOPICAL PATCH TD SCH (10:59)
[2023-01-17] MEDS ORDERED: chlordiazePOXIDE HCL 25 MG CAPSULE ONE (11:02)
[2023-01-17] MEDS ORDERED: NICOTINE 21 MG/24 HOURS TOPICAL PATCH ONE (11:03)
[2023-01-17] MEDS: hydrOXYzine PAMOATE 25 MG CAPSULE (FP) PO PRN (17:58)
[2023-01-17] MEDS: THIAMINE HCL 100 MG TABLET (FP) PO SCH (22:30)
[2023-01-17] MEDS: MELATONIN 5 MG TABLETS PO SCH (22:30)
[2023-01-18] MEDS: chlordiazePOXIDE HCL 25 MG CAPSULE PO SCH ×4 (05:42→22:04)
[2023-01-18] MEDS: NICOTINE 21 MG/24 HOURS TOPICAL PATCH TD SCH (10:25)
[2023-01-18] MEDS: PRENATAL VITAMINS W/ FOLIC ACID TABLET (FP) PO SCH (10:26)
[2023-01-18 11:27] LABS: HEMATOCRIT 38.7 % (35.4-49); HEMOGLOBIN 12.9 GM/dL (11.7-16.9); MCH 27.9 pg (25.7-33.7); MCHC 33.3 g/dl (32.0-35.9); MEAN CELL VOLUME 83.7 fl (80-96); PLATELET COUNT 229 10^3/uL (134-434); RBC 4.62 M/mm3 (4.00-5.60); RDW 14.7 % (11.9-15.9); WHITE BLOOD COUNT 3.6 K/mm3 (4.0-10.0)
[2023-01-18 11:34] LABS: POTASSIUM 3.7 mmol/L (3.5-5.1)
[2023-01-18 11:37] LABS: BLOOD UREA NITROGEN 9.3 mg/dL (7-18); CALCIUM 9.1 mg/dL (8.5-10.1)
[2023-01-18 11:38] LABS: ALBUMIN 3.7 g/dl (3.4-5.0)
[2023-01-18 11:40] LABS: CREATININE 0.8 mg/dL (0.55-1.3)
[2023-01-18 11:42] LABS: BILIRUBIN,TOTAL 1.2 mg/dL (0.2-1); TOT PROT 6.7 g/dl (6.4-8.2)
[2023-01-18] MEDS ORDERED: PNEUMOC 20-VAL CONJ-DIP CRM/PF 0.5 ML SYRINGE IM ONE (12:00)
[2023-01-18] MEDS: LISINOPRIL 5 MG TABLET PO SCH (13:29)
[2023-01-18] MEDS: hydrOXYzine PAMOATE 25 MG CAPSULE (FP) PO PRN (21:48)
[2023-01-18] MEDS: THIAMINE HCL 100 MG TABLET (FP) PO SCH (21:48)
[2023-01-18] MEDS: MELATONIN 5 MG TABLETS PO SCH (21:48)
[2023-01-19] MEDS: chlordiazePOXIDE HCL 25 MG CAPSULE PO SCH ×2 (05:31→10:28)
[2023-01-19] MEDS: PRENATAL VITAMINS W/ FOLIC ACID TABLET (FP) PO SCH (10:28)
[2023-01-19] MEDS: LISINOPRIL 5 MG TABLET PO SCH ×2 (10:28→10:57)
[2023-01-19] MEDS: NICOTINE 21 MG/24 HOURS TOPICAL PATCH TD SCH (10:28)
[2023-01-19] MEDS ORDERED: LACTULOSE 20 GM/30 ML UDC (FOR ORAL USE ONLY) PO PRN (10:59)
[2023-01-19] MEDS ORDERED: LORazepam 1 MG TABLET PO PRN (11:01)
[2023-01-19] MEDS: LORazepam 2 MG TABLET PO SCH ×3 (11:18→22:38)
[2023-01-19] MEDS: MELATONIN 5 MG TABLETS PO SCH (22:39)
[2023-01-19] MEDS: THIAMINE HCL 100 MG TABLET (FP) PO SCH (22:39)
[2023-01-20] MEDS ORDERED: chlordiazePOXIDE HCL 10 MG CAPSULE PO PRN
[2023-01-20] MEDS ORDERED: chlordiazePOXIDE HCL 10 MG CAPSULE PO SCH (05:00)
[2023-01-20] MEDS: LORazepam 1 MG TABLET PO SCH ×4 (05:40→22:16)
[2023-01-20] MEDS: LISINOPRIL 5 MG TABLET PO SCH (10:09)
[2023-01-20] MEDS: PRENATAL VITAMINS W/ FOLIC ACID TABLET (FP) PO SCH (10:09)
[2023-01-20] MEDS: NICOTINE 21 MG/24 HOURS TOPICAL PATCH TD SCH (10:10)
[2023-01-20] MEDS: THIAMINE HCL 100 MG TABLET (FP) PO SCH (22:16)
[2023-01-20] MEDS: QUEtiapine FUMARATE 25 MG TABLET PO SCH (22:16)
[2023-01-20] MEDS: MELATONIN 5 MG TABLETS PO SCH (22:17)
[2023-01-21] MEDS ORDERED: LORazepam 0.5 MG TABLET PO PRN
[2023-01-21] MEDS ORDERED: chlordiazePOXIDE HCL 10 MG CAPSULE PO SCH (05:00)
[2023-01-21] MEDS: LORazepam 0.5 MG TABLET PO SCH ×4 (05:52→22:45)
[2023-01-21] MEDS: hydrOXYzine PAMOATE 25 MG CAPSULE (FP) PO PRN (05:55)
[2023-01-21] MEDS: LISINOPRIL 5 MG TABLET PO SCH (10:28)
[2023-01-21] MEDS: NICOTINE 21 MG/24 HOURS TOPICAL PATCH TD SCH (10:28)
[2023-01-21] MEDS: PRENATAL VITAMINS W/ FOLIC ACID TABLET (FP) PO SCH (10:28)
[2023-01-21 21:23] VITALS: BP 108/65; PULSE 62; RESP 17; TEMP 97.3
[2023-01-21] MEDS: QUEtiapine FUMARATE 25 MG TABLET PO SCH (22:44)
[2023-01-21] MEDS: THIAMINE HCL 100 MG TABLET (FP) PO SCH (22:45)
[2023-01-21] MEDS: MELATONIN 5 MG TABLETS PO SCH (22:48)
[2023-01-22] MEDS ORDERED: chlordiazePOXIDE HCL 10 MG CAPSULE PO ONE (05:00)
[2023-01-22] MEDS ORDERED: LORazepam 0.5 MG TABLET PO ONE (05:00)
== END 2023-01-22 09:06 | disposition home or self-care (01) | DRG 775 ==
LOC: YASAS 08:49 → Y6N 10:20
PROVIDERS: ADMIT Allergy & Immunology; ATTEND Surgery
PROC: HZ2ZZZZ Detoxification Services for Substance Abuse Treatment (ICD-10-PCS; principal; 2023-01-17)
DX: F10.230 Alcohol dependence with withdrawal, uncomplicated (principal); F17.210 Nicotine dependence, cigarettes, uncomplicated; F41.9 Anxiety disorder, unspecified; I10 Essential (primary) hypertension; Z86.59 Personal history of other mental and behavioral disorders; Z86.19 Personal history of other infectious and parasitic diseases
CPT/HCPCS: 36415; 80053; 85027; 86593; 86780; 90677; C9803-CS; U0003; U0005

== ENCOUNTER 2023-03-02 08:57 | Inpatient (IN) | payer OTHER ==
[2023-03-02 09:49] VITALS: BMI 19.9
[2023-03-02] MEDS ORDERED: NICOTINE 10 MG CARTRIDGE (INHALER) IH PRN (10:18)
[2023-03-02] MEDS ORDERED: NICOTINE POLACRILEX 2 MG GUM BUC PRN (10:18)
[2023-03-02] MEDS ORDERED: LOPERAMIDE HCL 2 MG CAPSULE PO PRN (10:18)
[2023-03-02] MEDS ORDERED: NALOXONE HCL 0.4 MG/ML VIAL IM PRN (10:18)
[2023-03-02] MEDS ORDERED: BENZOCAINE/MENTHOL (CHLORASEPTIC ) LOZENGE MM PRN (10:18)
[2023-03-02] MEDS ORDERED: IBUPROFEN 600 MG TABLET (FP) PO PRN (10:18)
[2023-03-02] MEDS ORDERED: ACETAMINOPHEN 325 MG TABLET (FP) PO PRN (10:18)
[2023-03-02] MEDS ORDERED: MAGNESIUM HYDROX 2400MG/30ML ORAL SUSPENSION 30 ML CUP PO PRN (10:18)
[2023-03-02] MEDS ORDERED: MAG HYDROX/AL HYDROX/SIMETH 30 ML UNIT-DOSE CUP PO PRN (10:18)
[2023-03-02] MEDS ORDERED: BENZONATATE 200 MG CAPSULE PO PRN (10:18)
[2023-03-02] MEDS ORDERED: BISMUTH SUBSALICYLATE 262 MG/15 ML BTL PO PRN (10:18)
[2023-03-02] MEDS ORDERED: POLYETHYLENE GLYCOL (HEALTHYLAX) 3350 17 GM PACKET PO PRN (10:18)
[2023-03-02] MEDS ORDERED: DICYCLOMINE HCL 10 MG CAPSULE PO PRN (10:18)
[2023-03-02] MEDS ORDERED: IBUPROFEN 400 MG TABLET (FP) PO PRN (10:18)
[2023-03-02] MEDS ORDERED: NALOXONE HCL (KLOXXADO) 8 MG SPRAY NS PRN (10:18)
[2023-03-02] MEDS ORDERED: guaiFENesin 600 MG TABLET.ER (FP) PO PRN (10:18)
[2023-03-02] MEDS ORDERED: PRENATAL VITAMINS W/ FOLIC ACID TABLET (FP) PO ONE (10:53)
[2023-03-02] MEDS: PRENATAL VITAMINS W/ FOLIC ACID TABLET (FP) PO SCH (10:56)
[2023-03-02] MEDS: ONDANSETRON *ODT* 4 MG TABLET SL PRN (20:37)
[2023-03-02] MEDS: THIAMINE HCL 100 MG TABLET (FP) PO SCH (22:14)
[2023-03-02] MEDS: hydrOXYzine PAMOATE 25 MG CAPSULE (FP) PO PRN (22:14)
[2023-03-02] MEDS: MELATONIN 5 MG TABLETS PO SCH (22:14)
[2023-03-02] MEDS: METHOCARBAMOL 500 MG TABLET PO PRN (22:14)
[2023-03-03] MEDS: ONDANSETRON *ODT* 4 MG TABLET SL PRN ×2 (08:14→17:38)
[2023-03-03] MEDS: PRENATAL VITAMINS W/ FOLIC ACID TABLET (FP) PO SCH (10:21)
[2023-03-03] MEDS ORDERED: LORazepam 1 MG TABLET PO PRN (10:28)
[2023-03-03] MEDS: LISINOPRIL 5 MG TABLET PO SCH (10:58)
[2023-03-03] MEDS: LORazepam 2 MG TABLET PO SCH ×3 (10:58→22:23)
[2023-03-03 12:21] LABS: HEMATOCRIT 40.1 % (35.4-49); HEMOGLOBIN 13.1 GM/dL (11.7-16.9); MCH 28.2 pg (25.7-33.7); MCHC 32.5 g/dl (32.0-35.9); MEAN CELL VOLUME 86.8 fl (80-96); MEAN PLT VOLUME 8.5 fl (7.5-11.1); PLATELET COUNT 316 10^3/uL (134-434); RBC 4.63 M/mm3 (4.00-5.60); WHITE BLOOD COUNT 4.5 K/mm3 (4.0-10.0)
[2023-03-03 12:22] LABS: POTASSIUM 3.4 mmol/L (3.5-5.1)
[2023-03-03 12:24] LABS: CALCIUM 9.1 mg/dL (8.5-10.1)
[2023-03-03 12:25] LABS: ALBUMIN 4.4 g/dl (3.4-5.0); BLOOD UREA NITROGEN 6.7 mg/dL (7-18)
[2023-03-03 12:28] LABS: CREATININE 0.8 mg/dL (0.55-1.3)
[2023-03-03 12:29] LABS: TOT PROT 7.5 g/dl (6.4-8.2)
[2023-03-03] MEDS: POTASSIUM CHLORIDE ORAL LIQUID 20 MEQ/15 ML PO SCH (22:23)
[2023-03-03] MEDS: THIAMINE HCL 100 MG TABLET (FP) PO SCH (22:23)
[2023-03-03] MEDS: MELATONIN 5 MG TABLETS PO SCH (22:23)
[2023-03-04] MEDS: LORazepam 2 MG TABLET PO SCH ×4 (05:15→22:16)
[2023-03-04] MEDS: POTASSIUM CHLORIDE ORAL LIQUID 20 MEQ/15 ML PO SCH ×2 (10:23→22:16)
[2023-03-04] MEDS: LISINOPRIL 5 MG TABLET PO SCH (10:23)
[2023-03-04] MEDS: PRENATAL VITAMINS W/ FOLIC ACID TABLET (FP) PO SCH (10:28)
[2023-03-04] MEDS: LACTULOSE 20 GM/30 ML UDC (FOR ORAL USE ONLY) PO SCH ×2 (14:48→22:16)
[2023-03-04] MEDS ORDERED: TRIMETHOBENZAMIDE HCL 200MG/2ML INJ IM ONE (17:51)
[2023-03-04] MEDS: THIAMINE HCL 100 MG TABLET (FP) PO SCH (22:16)
[2023-03-04] MEDS: MELATONIN 5 MG TABLETS PO SCH (22:16)
[2023-03-05] MEDS: LORazepam 1 MG TABLET PO SCH ×4 (05:55→22:47)
[2023-03-05] MEDS: LACTULOSE 20 GM/30 ML UDC (FOR ORAL USE ONLY) PO SCH ×3 (06:21→22:47)
[2023-03-05] MEDS: PRENATAL VITAMINS W/ FOLIC ACID TABLET (FP) PO SCH (10:49)
[2023-03-05] MEDS: POTASSIUM CHLORIDE ORAL LIQUID 20 MEQ/15 ML PO SCH (10:50)
[2023-03-05] MEDS: LISINOPRIL 5 MG TABLET PO SCH (10:50)
[2023-03-05] MEDS: ONDANSETRON *ODT* 4 MG TABLET SL PRN (16:43)
[2023-03-05 17:02] LABS: POTASSIUM 4.3 mmol/L (3.5-5.1)
[2023-03-05 17:14] LABS: BLOOD UREA NITROGEN 5.1 mg/dL (7-18)
[2023-03-05 17:15] LABS: BASO % 0.4 % (0-2.0); EOS % 1.5 % (0-4.5); HEMATOCRIT 40.4 % (35.4-49); HEMOGLOBIN 13.1 GM/dL (11.7-16.9); LYMPH % 34.8 % (8-40); MCH 27.8 pg (25.7-33.7); MCHC 32.3 g/dl (32.0-35.9); MEAN PLT VOLUME 8.7 fl (7.5-11.1); MONO % 6.7 % (3.8-10.2); NEUT % 56.6 % (42.8-82.8); PLATELET COUNT 257 10^3/uL (134-434); RDW 14.4 % (11.9-15.9); WHITE BLOOD COUNT 4.5 K/mm3 (4.0-10.0)
[2023-03-05 17:17] LABS: CREATININE 0.7 mg/dL (0.55-1.3)
[2023-03-05] MEDS: THIAMINE HCL 100 MG TABLET (FP) PO SCH (22:47)
[2023-03-05] MEDS: MELATONIN 5 MG TABLETS PO SCH (22:47)
[2023-03-06] MEDS ORDERED: LORazepam 0.5 MG TABLET PO PRN
[2023-03-06] MEDS: LORazepam 0.5 MG TABLET PO SCH ×4 (05:50→22:46)
[2023-03-06] MEDS: LACTULOSE 20 GM/30 ML UDC (FOR ORAL USE ONLY) PO SCH ×4 (06:03→22:45)
[2023-03-06] MEDS: LISINOPRIL 5 MG TABLET PO SCH (10:45)
[2023-03-06] MEDS: PRENATAL VITAMINS W/ FOLIC ACID TABLET (FP) PO SCH (10:46)
[2023-03-06] MEDS: MELATONIN 5 MG TABLETS PO SCH (22:46)
[2023-03-06] MEDS: hydrOXYzine PAMOATE 25 MG CAPSULE (FP) PO PRN (22:46)
[2023-03-06] MEDS: THIAMINE HCL 100 MG TABLET (FP) PO SCH (22:46)
[2023-03-06] MEDS: METHOCARBAMOL 500 MG TABLET PO PRN (22:46)
[2023-03-07] MEDS ORDERED: LORazepam 0.5 MG TABLET PO ONE (05:00)
[2023-03-07] MEDS: LISINOPRIL 5 MG TABLET PO SCH (10:31)
[2023-03-07] MEDS: LACTULOSE 20 GM/30 ML UDC (FOR ORAL USE ONLY) PO SCH ×2 (10:32→13:28)
[2023-03-07] MEDS: PRENATAL VITAMINS W/ FOLIC ACID TABLET (FP) PO SCH (10:33)
[2023-03-07 13:11] VITALS: BP 122/70; PULSE 85; RESP 20; TEMP 97.8
== END 2023-03-07 01:53 | disposition other institution (70) | DRG 775 ==
LOC: YASAS 08:57 → Y3N 10:40
PROVIDERS: ADMIT Allergy & Immunology; ATTEND Surgery
PROC: HZ2ZZZZ Detoxification Services for Substance Abuse Treatment (ICD-10-PCS; principal; 2023-03-02)
DX: F10.230 Alcohol dependence with withdrawal, uncomplicated (principal); F12.10 Cannabis abuse, uncomplicated; F17.210 Nicotine dependence, cigarettes, uncomplicated; G47.00 Insomnia, unspecified; E87.6 Hypokalemia; I10 Essential (primary) hypertension; R79.89 Other specified abnormal findings of blood chemistry; R11.0 Nausea; R76.8 Other specified abnormal immunological findings in serum; Z86.19 Personal history of other infectious and parasitic diseases
CPT/HCPCS: 36415; 80048; 80053; 82140; 85025; 85027; 86593; 86780; 87635; 87811; Q0162

== ENCOUNTER 2023-03-07 14:57 | Inpatient (IN) | payer OTHER ==
[2023-03-07 15:11] VITALS: RESP 18
[2023-03-07] MEDS ORDERED: IBUPROFEN 600 MG TABLET (FP) PO PRN (17:32)
[2023-03-07] MEDS ORDERED: BENZONATATE 200 MG CAPSULE PO PRN (17:32)
[2023-03-07] MEDS ORDERED: MAG HYDROX/AL HYDROX/SIMETH 30 ML UNIT-DOSE CUP PO PRN (17:32)
[2023-03-07] MEDS ORDERED: AMMONIUM LACTATE 12% LOTION 225 GM BOTTLE TP PRN (17:32)
[2023-03-07] MEDS ORDERED: LOPERAMIDE HCL 2 MG CAPSULE PO PRN (17:32)
[2023-03-07] MEDS ORDERED: IBUPROFEN 400 MG TABLET (FP) PO PRN (17:32)
[2023-03-07] MEDS ORDERED: ACETAMINOPHEN 325 MG TABLET (FP) PO PRN (17:32)
[2023-03-07] MEDS ORDERED: BENZOCAINE/MENTHOL (CHLORASEPTIC ) LOZENGE MM PRN (17:32)
[2023-03-07] MEDS ORDERED: NALOXONE HCL 0.4 MG/ML VIAL IM PRN (17:32)
[2023-03-07] MEDS ORDERED: MAGNESIUM HYDROX 2400MG/30ML ORAL SUSPENSION 30 ML CUP PO PRN (17:32)
[2023-03-07] MEDS ORDERED: COLLOIDAL OATMEAL 1 BAR EACH TP PRN (17:32)
[2023-03-07] MEDS ORDERED: POLYETHYLENE GLYCOL (HEALTHYLAX) 3350 17 GM PACKET PO PRN (17:32)
[2023-03-07] MEDS ORDERED: guaiFENesin 600 MG TABLET.ER (FP) PO PRN (17:32)
[2023-03-07] MEDS ORDERED: NALOXONE HCL (KLOXXADO) 8 MG SPRAY NS PRN (17:32)
[2023-03-07] MEDS ORDERED: hydrOXYzine PAMOATE 25 MG CAPSULE (FP) PO PRN (17:32)
[2023-03-07] MEDS: THIAMINE HCL 100 MG TABLET (FP) PO SCH (21:50)
[2023-03-07] MEDS: MELATONIN 5 MG TABLETS PO SCH (21:50)
[2023-03-08 06:58] VITALS: TEMP 97.7
[2023-03-08] MEDS: LISINOPRIL 5 MG TABLET PO SCH (10:11)
[2023-03-08] MEDS: PRENATAL VITAMINS W/ FOLIC ACID TABLET (FP) PO SCH (10:11)
[2023-03-08 10:40] LABS: HEMATOCRIT 42.7 % (35.4-49); HEMOGLOBIN 13.5 GM/dL (11.7-16.9); MCH 27.7 pg (25.7-33.7); MCHC 31.6 g/dl (32.0-35.9); MEAN CELL VOLUME 87.6 fl (80-96); MEAN PLT VOLUME 8.5 fl (7.5-11.1); PLATELET COUNT 235 10^3/uL (134-434); RBC 4.88 M/mm3 (4.00-5.60); RDW 14.8 % (11.9-15.9); WHITE BLOOD COUNT 4.3 K/mm3 (4.0-10.0)
[2023-03-08 10:45] LABS: POTASSIUM 4.5 mmol/L (3.5-5.1)
[2023-03-08 10:47] LABS: CALCIUM 9.7 mg/dL (8.5-10.1)
[2023-03-08 10:48] LABS: BLOOD UREA NITROGEN 9.6 mg/dL (7-18)
[2023-03-08 10:51] LABS: CREATININE 0.8 mg/dL (0.55-1.3)
[2023-03-08 10:52] LABS: BILIRUBIN,TOTAL 0.4 mg/dL (0.2-1)
[2023-03-08 10:53] LABS: TOT PROT 7.1 g/dl (6.4-8.2)
[2023-03-08 12:28] LABS: SYPHILIS W/ RPR CONF REACTIVE (NONREACTIVE)
[2023-03-08] MEDS: THIAMINE HCL 100 MG TABLET (FP) PO SCH (21:36)
[2023-03-08] MEDS: MELATONIN 5 MG TABLETS PO SCH (21:36)
[2023-03-09] MEDS: PRENATAL VITAMINS W/ FOLIC ACID TABLET (FP) PO SCH (10:22)
[2023-03-09] MEDS: LISINOPRIL 5 MG TABLET PO SCH (10:22)
[2023-03-09] MEDS: MELATONIN 5 MG TABLETS PO SCH (21:20)
[2023-03-09] MEDS: THIAMINE HCL 100 MG TABLET (FP) PO SCH (21:20)
[2023-03-10 07:07] VITALS: BP 113/67; PULSE 90
[2023-03-10] MEDS: PRENATAL VITAMINS W/ FOLIC ACID TABLET (FP) PO SCH (09:46)
[2023-03-10] MEDS: LISINOPRIL 5 MG TABLET PO SCH (09:46)
== END 2023-03-10 09:47 | disposition left against medical advice (07) | DRG 770 ==
LOC: YASAS 14:57 → Y3W 15:00
PROVIDERS: ADMIT Allergy & Immunology; ATTEND Psychiatry & Neurology Pain Medicine
PROC: HZ42ZZZ Group Counseling for Substance Abuse Treatment, Cognitive-Behavioral (ICD-10-PCS; principal; 2023-03-07)
DX: F10.20 Alcohol dependence, uncomplicated (principal); F12.20 Cannabis dependence, uncomplicated; F17.210 Nicotine dependence, cigarettes, uncomplicated; F31.9 Bipolar disorder, unspecified; F41.9 Anxiety disorder, unspecified; I10 Essential (primary) hypertension; R76.8 Other specified abnormal immunological findings in serum; Z86.19 Personal history of other infectious and parasitic diseases
CPT/HCPCS: 36415; 80053; 85027; 86593; 86780; 86803

== ENCOUNTER 2023-09-05 12:53 | Inpatient (IN) | payer OTHER ==
[2023-09-05 13:30] VITALS: BMI 20.1
[2023-09-05] MEDS ORDERED: BENZONATATE 200 MG CAPSULE PO PRN (16:04)
[2023-09-05] MEDS ORDERED: DICYCLOMINE HCL 10 MG CAPSULE PO PRN (16:04)
[2023-09-05] MEDS ORDERED: MAGNESIUM HYDROX 2400MG/30ML ORAL SUSPENSION 30 ML CUP PO PRN (16:04)
[2023-09-05] MEDS ORDERED: LOPERAMIDE HCL 2 MG CAPSULE PO PRN (16:04)
[2023-09-05] MEDS ORDERED: ACETAMINOPHEN 325 MG TABLET (FP) PO PRN (16:04)
[2023-09-05] MEDS ORDERED: BISMUTH SUBSALICYLATE 524 MG/30 ML PO PRN (16:04)
[2023-09-05] MEDS ORDERED: MAG HYDROX/AL HYDROX/SIMETH 30 ML UNIT-DOSE CUP PO PRN (16:04)
[2023-09-05] MEDS ORDERED: NALOXONE HCL 0.4 MG/ML VIAL IM PRN (16:04)
[2023-09-05] MEDS ORDERED: hydrOXYzine PAMOATE 25 MG CAPSULE (FP) PO PRN (16:04)
[2023-09-05] MEDS ORDERED: POLYETHYLENE GLYCOL (HEALTHYLAX) 3350 17 GM PACKET PO PRN (16:04)
[2023-09-05] MEDS ORDERED: BENZOCAINE/MENTHOL (CHLORASEPTIC ) LOZENGE MM PRN (16:04)
[2023-09-05] MEDS ORDERED: guaiFENesin 600 MG TABLET.ER (FP) PO PRN (16:04)
[2023-09-05] MEDS ORDERED: IBUPROFEN 400 MG TABLET (FP) PO PRN (16:04)
[2023-09-05] MEDS ORDERED: ONDANSETRON *ODT* 4 MG TABLET SL PRN (16:04)
[2023-09-05] MEDS ORDERED: IBUPROFEN 600 MG TABLET (FP) PO PRN (16:04)
[2023-09-05] MEDS ORDERED: NALOXONE HCL (KLOXXADO) 8 MG SPRAY NS PRN (16:04)
[2023-09-05] MEDS ORDERED: LORazepam 1 MG TABLET PO PRN (16:04)
[2023-09-05] MEDS: MELATONIN 5 MG TABLETS PO SCH (22:57)
[2023-09-05] MEDS: THIAMINE HCL 100 MG TABLET (FP) PO SCH (22:57)
[2023-09-06] MEDS: LORazepam 2 MG TABLET PO SCH ×5 (00:06→22:25)
[2023-09-06] MEDS: LISINOPRIL 5 MG TABLET PO SCH (10:19)
[2023-09-06] MEDS: METHOCARBAMOL 500 MG TABLET PO PRN (10:19)
[2023-09-06] MEDS: PRENATAL VITAMINS W/ FOLIC ACID TABLET (FP) PO SCH (10:19)
[2023-09-06 15:14] LABS: HEMATOCRIT 34.8 % (35.4-49); HEMOGLOBIN 11.3 GM/dL (11.7-16.9); MCH 28.1 pg (25.7-33.7); MCHC 32.6 g/dl (32.0-35.9); MEAN CELL VOLUME 86.3 fl (80-96); MEAN PLT VOLUME 8.3 fl (7.5-11.1); PLATELET COUNT 191 10^3/uL (134-434); RBC 4.04 M/mm3 (4.00-5.60); RDW 14.7 % (11.9-15.9); WHITE BLOOD COUNT 3.1 K/mm3 (4.0-10.0)
[2023-09-06 15:45] LABS: CHLORIDE 105 mmol/L (98-107); POTASSIUM 4.1 mmol/L (3.5-5.1); SODIUM 140 mmol/L (136-145)
[2023-09-06 15:48] LABS: ANION GAP 4 mmol/L (4-13); BLOOD UREA NITROGEN 9.9 mg/dL (7-18); CO2 31 mmol/L (21-32); GLUCOSE,RANDOM 91 mg/dL (74-106)
[2023-09-06 15:49] LABS: ALBUMIN 3.4 g/dl (3.4-5.0)
[2023-09-06 15:51] LABS: CREATININE 0.7 mg/dL (0.55-1.3); SGOT/AST 24 U/L (15-37); SGPT/ALT 31 U/L (13-61)
[2023-09-06 15:52] LABS: BILIRUBIN,TOTAL 0.6 mg/dL (0.2-1); TOT PROT 6.2 g/dl (6.4-8.2)
[2023-09-06] MEDS: amLODIPine BESYLATE 5 MG TABLET (FP) PO SCH (15:53)
[2023-09-06 15:54] LABS: ALK PHOS 49 U/L (45-117)
[2023-09-06] MEDS: THIAMINE HCL 100 MG TABLET (FP) PO SCH (22:25)
[2023-09-06] MEDS: MELATONIN 5 MG TABLETS PO SCH (22:26)
[2023-09-07] MEDS: LORazepam 1 MG TABLET PO SCH ×4 (05:55→22:24)
[2023-09-07] MEDS: amLODIPine BESYLATE 5 MG TABLET (FP) PO SCH (10:25)
[2023-09-07] MEDS: LISINOPRIL 5 MG TABLET PO SCH (10:25)
[2023-09-07] MEDS: PRENATAL VITAMINS W/ FOLIC ACID TABLET (FP) PO SCH (10:25)
[2023-09-07] MEDS: METHOCARBAMOL 500 MG TABLET PO PRN (10:28)
[2023-09-07] MEDS: LACTULOSE 20 GM/30 ML UDC (FOR ORAL USE ONLY) PO SCH ×2 (13:36→22:24)
[2023-09-07] MEDS: THIAMINE HCL 100 MG TABLET (FP) PO SCH (22:24)
[2023-09-07] MEDS: MELATONIN 5 MG TABLETS PO SCH (22:25)
[2023-09-08] MEDS ORDERED: LORazepam 0.5 MG TABLET PO PRN
[2023-09-08] MEDS: LORazepam 0.5 MG TABLET PO SCH ×4 (05:43→22:18)
[2023-09-08] MEDS: LACTULOSE 20 GM/30 ML UDC (FOR ORAL USE ONLY) PO SCH ×3 (05:44→22:17)
[2023-09-08] MEDS: amLODIPine BESYLATE 5 MG TABLET (FP) PO SCH (10:18)
[2023-09-08] MEDS: PRENATAL VITAMINS W/ FOLIC ACID TABLET (FP) PO SCH (10:18)
[2023-09-08] MEDS: LISINOPRIL 5 MG TABLET PO SCH (10:19)
[2023-09-08] MEDS: MELATONIN 5 MG TABLETS PO SCH (22:18)
[2023-09-08] MEDS: THIAMINE HCL 100 MG TABLET (FP) PO SCH (22:18)
[2023-09-09] MEDS ORDERED: LORazepam 0.5 MG TABLET PO ONE (05:00)
[2023-09-09] MEDS: LACTULOSE 20 GM/30 ML UDC (FOR ORAL USE ONLY) PO SCH ×2 (05:18→14:43)
[2023-09-09 05:39] VITALS: BP 161/79; PULSE 59; RESP 20; TEMP 98.7
[2023-09-09] MEDS: amLODIPine BESYLATE 5 MG TABLET (FP) PO SCH (09:00)
[2023-09-09] MEDS: PRENATAL VITAMINS W/ FOLIC ACID TABLET (FP) PO SCH (09:00)
[2023-09-09] MEDS: LISINOPRIL 5 MG TABLET PO SCH (09:00)
== END 2023-09-09 09:10 | disposition home or self-care (01) | DRG 775 ==
LOC: YASAS 12:53 → Y6N 17:32
PROVIDERS: ADMIT Allergy & Immunology; ATTEND Surgery
PROC: HZ2ZZZZ Detoxification Services for Substance Abuse Treatment (ICD-10-PCS; principal; 2023-09-05)
DX: F10.230 Alcohol dependence with withdrawal, uncomplicated (principal); F12.20 Cannabis dependence, uncomplicated; F31.9 Bipolar disorder, unspecified; F20.9 Schizophrenia, unspecified; F41.8 Other specified anxiety disorders; I10 Essential (primary) hypertension; R79.89 Other specified abnormal findings of blood chemistry; R76.8 Other specified abnormal immunological findings in serum; R63.4 Abnormal weight loss; Z68.20 Body mass index [BMI] 20.0-20.9, adult; Z86.19 Personal history of other infectious and parasitic diseases
CPT/HCPCS: 36415; 80053; 80307; 82140; 85027; 86593; 86780; 87635